=== PATIENT | male | born 1975 | race Caucasian/White ===

== ENCOUNTER 2021-08-30 12:31 | Observation (INO) | payer OTHER, SELFPAY ==
[2021-08-30] VITALS (37 sets, daily range): BP systolic 159–246; BP diastolic 103–146; PULSE 66–106; RESP 12–25; TEMP 36.3–36.6; O2SAT 95–98; BMI 29.5
--- NOTE | ~2021-08-30 | CT_ITS ---
EXAMINATION: CT brain wo con DATE: 08/30/2021 13:27 INDICATION: Dizziness. Left arm tingling. TECHNIQUE: Computed tomography (CT) of the head was performed without intravenous contrast. The mA wa s adjusted according to patient size. Iterative reconstruction technique was employed. The dose-lengt h product was 605.33 mGy-cm. COMPARISON: None FINDINGS: There are scattered areas of low attenuation in the cerebral white matter. There is an old lacunar infarct in left lentiform nucleus. There is no intracranial hemorrhage, acute infarction, or abnormal intracranial mass lesion. The ventricles are normal in size. The orbits are normal. There is mild mucosal thickening in the paranasal sinuses. The mastoid air cells are normal. IMPRESSION: 1. Old lacunar infarct in left lentiform nucleus. 2. Moderate nonspecific cerebral white matter disease, which likely represents chronic small vessel i schemic disease. Reviewed, dictated and finalized at location A. IMPRESSION: 1. Old lacunar infarct in left lentiform nucleus. 2. Moderate nonspecific cerebral white matter disease, which likely represents chronic small vessel ischemic disease.
--- NOTE | 2021-08-30 12:34 | ECG_ITS ---
Measurements Intervals [place] Rate: 94 P: 28 CA: 156 QRS: -5 QRSD: 105 T: 129 QT: 373 QTc: 468 Interpretive Statements SINUS RHYTHM LEFT VENTRICULAR HYPERTROPHY AND ST-T CHANGE BORDERLINE R WAVE PROGRESSION, ANTERIOR LEADS BORDERLINE ECG Electronically Signed On 08-30-2021 12:54:21 CDT by Loi Lozada D.O.
[2021-08-30 12:59] LABS: Basophils Absolute Auto 0.1 K/mm3 (0.0-0.1); Basophils Percent Auto 0.7 % (0.2-1.2); Eosinophils Percent Auto 0.3 % (0-4.4); Hematocrit 46.3 % (42.0-52.0); Hemoglobin 15.8 g/dL (14.0-18.0); Immature Granulocyte Absolute 0.02 K/mm3 (0.00-0.031); Immature Granulocyte Percent A 0.3 % (0-0.5); Mean Corpuscular HGB Conc 34.1 g/dl (32-36); Mean Corpuscular Hemoglobin 28.9 pg (26-34); Mean Corpuscular Volume 84.8 fl (80-100); Mean Platelet Volume 11.1 fl (7.4-10.4); Monocytes Absolute Auto 0.4 K/mm3 (0.1-0.6); Monocytes Percent Auto 5.5 % (2.6-8.5); Neutrophils Absolute Auto 5.4 K/mm3 (1.3-6.7); Neutrophils Percent Auto 76.2 % (45.5-73.1); Platelet Count Result 242 k/mm3 (150-375); Red Blood Count 5.46 M/mm3 (4.6-6.20); Red Cell Distribution Width 12.6 % (11.5-14.5); White Blood Count 7.1 K/mm3 (4.5-10.0)
[2021-08-30 13:12] LABS: Alanine Aminotransferase 38 U/L (6-50); Albumin Level 4.7 g/dL (3.5-5.1); Alkaline Phosphatase 74 U/L (38-126); Anion Gap 8 mmol/L (8-16); Aspartate Amino Transferase 28 U/L (17-59); Bilirubin,Total 0.7 mg/dL (0.2-1.3); Blood Urea Nitrogen 25 mg/dL (9-20); Calcium 8.9 mg/dL (8.4-10.2); Carbon Dioxide 28 mmol/L (22-30); Chloride 104 mmol/L (98-107); Estimated CRCL calculation 81 ml/min; Estimated Glomerular Filt Rate > 60; Glucose 134 mg/dL (65-110); Potassium 3.5 mmol/L (3.4-5.0); Sodium 140 mmol/L (137-145)
[2021-08-30] MEDS: LABETALOL HCL INJ 100 MG/20 ML VIAL 20 MG IV PUSH (13:14)
[2021-08-30 13:59] LABS: Prothrombin Time 13.2 Seconds (11.1-14.7)
[2021-08-30 14:00] LABS: Partial Thromboplastin Time 28.4 SECONDS (22.3-36.8)
[2021-08-30 14:01] LABS: Appearance Urine Clear (Clear); Bilirubin Urine Negative (Negative); Blood Urine Negative (Negative); Color Urine Yellow (Yellow); Glucose Urine UA Negative (Negative); Ketones Urine Negative (Negative); Leukocyte Esterase Ur Negative LEU/UL (Negative); Nitrate Urine Negative (Negative); Protein Urine 2+ mg/dL (Negative); Specific Grav Ur >= 1.030 (1.001-1.035); Urobilinogen Urine 0.2 mg/dL (<2.0); pH Urine 6.5 (5.0-9.0)
[2021-08-30 14:20] LABS: Bacteria Urine Trace /hpf; Mucus Urine Rare /lpf; RBC Urine 0-2 /hpf (0-2); WBC Urine 0-3 /hpf
--- NOTE | 2021-08-30 14:24 | ED.DIZZY ---
HPI - Dizziness General Chief Complaint: Dizziness Stated Complaint: Sweating, Numbness In Body Time Seen by Provider: 08/30/21 12:51 Source: patient and RN notes reviewed Mode of arrival: ambulatory Limitations: no limitations History of Present Illness HPI Narrative: This is a 46 yo male who presents for evaluation of dizziness. Patient he was at work when he suddenly developed cold sweats, dizziness and left hand tingling. He states his symptoms have passed. He denies having chest pain, headache, back pain, weakness or abdominal pain. He also denies heart racing or palpitations. He was found to have extremely elevated blood pressure in triage. Patient states he has been told before this blood pressure is high, and he should monitor it. He states he has not seen doctor in years and he does not monitor his blood pressure. He denies focal weakness, blurred vision. Related Data Home Medications Medication Instructions Recorded Confirmed No Home Medications 08/30/21 08/30/21 Allergies Allergy/AdvReac Type Severity Reaction Status Date / Time No Known Allergies Allergy Verified 08/30/21 12:46 Review of Systems Review of Systems: All systems reviewed & are unremarkable except as noted in HPI and below Constitutional: Constitutional: Denies chills, Denies fatigue and Denies fever(s) Eyes: Eyes: Denies change in vision and Denies photophobia ENT: Denies vertigo, Reports dizziness and Denies nasal congestion Cardiovascular: Cardiovascular: Denies chest pain and Denies radiating jaw, neck or arm pain Respiratory: Respiratory: Denies chest congestion, Denies cough and Denies dyspnea Gastrointestinal: Gastrointestinal: Denies abdominal pain, Denies bloating, Denies nausea and Denies vomiting Neurologic: Reports dizziness, Denies headache(s), Denies focal weakness and Reports numbness PMFSH Past Medical History Medical History No pertinent past medical history Surgical History Surgical History No pertinent past surgical history Family History Family History Father Heart disease Social History Social History Smoking status: Light tobacco smoker Tobacco type: cigars Alcohol intake: current Drinks per week: 4 Substance use: current Substance use type: marijuana Other substance usage details: every few weeks Spiritual care concerns: No Exam Narrative: GENERAL: Well-appearing, well-nourished, and in no acute distress. HEAD: Normocephalic, atraumatic EYES: PERRLA and EOMI, conjunctiva clear without discharge EARS: TM's clear bilaterally without erythema or dullness NOSE: Nares clear, no rhinorrhea or epistaxis THROAT:Mucous membranes moist, Oropharynx normal without erythema, exudate, peritonsillar swelling or fluctuance NECK: Supple, without lymphadenopathy or mass RESPIRATORY: No respiratory distress, Airway patent, Respirations non-labored, Clear to auscultation without rales, rhonchi or wheeze HEART: Regular rate and rhythm. No murmur heard. Normal peripheral pulses. ABDOMEN: Soft, nontender, nondistended, normal active bowel sounds. No masses. No rebound or guarding, No organomegaly. EXTREMITIES: No edema, normal strength with full range of motion. SKIN: Warm, dry, normal color without rash NEURO: Alert and oriented x3. CN 2-12 grossly intact. No focal deficits. PSYCH: Normal mood and affect. Course Reevaluation(s) Reevaluation #1: I discussed with patient that he will be admitted for blood pressure control. I discussed CT brain showing lacunar infarct. He has been accepted for admission by Ashley Beckett with hospitalist service. Date: 08/30/21 Time: 14:50 Vital Signs Vital signs: Vital Signs Temperature 97.4 F L 08/30/21 1
[2021-08-30 14:47] LABS: Add Urine Microscopic? YES
[2021-08-30 15:34] LABS: SARS-CoV-2 RNA PCR Negative
--- NOTE | 2021-08-30 15:52 | PM.IMHP ---
H&P: HPI History of Present Illness Date/Time: 08/30/21 15:00 Chief Complaint: Dizziness with sweating and numbness in body Narrative: This 46 year old male patient with no known PMH and no chronic health conditions that are known presents to the ER via EMS after being at work in a cooler, where he began to get diaphoretic, dizzy, felt weak and suddenly had tingling down his left arm. He was transported to the ER where his initial BP was in the 240s systolic/140s Diastolic. He did not present with any CP, dyspnea or Palpitations. He has not seen a PCP for many years, and has not had any medical testing for the same amount of time. He does not routinely monitor his BP and he denied any focal weakness, blurry vision or other neurological deficits upon presentation. Patient was given labetalol 20 mg IV push and blood pressure subsequently decreased to 164/107. Patient had CT of the brain performed demonstrating an old lacunar infarct in the left lentiform nucleus and moderate nonspecific cerebral white matter disease which likely represents chronic small vessel ischemic disease. His blood pressure continues to fluctuate 160s-240s Systolic/107-146 Diastolic. He is being admitted at this time to observation and for blood pressure management. At the time of my exam, his acute symptoms have resolved, however, his BP remains high. He denies any CP, Dyspnea, Palpitations, N/V/D/urinary complaints. Review of Systems Review of Systems: All systems reviewed & are unremarkable except as noted in HPI and below PMFSH Past Medical History Medical History No pertinent past medical history Surgical History Surgical History No pertinent past surgical history Family History Family History Father Heart disease Social History Social History Substance use type: marijuana Meds Home Medications and Allergies Allergies Allergy/AdvReac Type Severity Reaction Status Date / Time No Known Allergies Allergy Verified 08/30/21 12:46 Vital Signs Vital Signs - 24 hr 08/30/21 12:36 08/30/21 12:47 08/30/21 14:15 Temperature 97.4 F L Pulse Rate 106 H 93 74 Respiratory Rate 18 16 19 Blood Pressure 246/146 H 220/142 H 164/107 H Pulse Oximetry 97 97 97 Oxygen Delivery Room Air 08/30/21 13:30 Temperature Pulse Rate 73 Respiratory Rate 16 Blood Pressure 174/113 H Pulse Oximetry Oxygen Delivery Exam Const: General: comfortable and no acute distress HENMT: Ears: TM's normal bilaterally General nose exam: Normal nares present Mouth: Yes moist mucous membranes Eyes: General: appearance normal, both eyes and all related structures Sclera: sclerae normal Pupils: Equal, round and reactive pupils present EOM: EOMs intact bilaterally Neck: Neck: supple and no JVD Thyroid: thyroid normal Carotids: no bruits Lymphatic: lymphadenopathy not noted Chest: Other: Non-tender to palpation. Resp: Effort & Inspection: normal respiratory effort Auscultation: clear to auscultation bilaterally Cardio: Rate: regular rate Rhythm: regular rhythm Heart sounds: no gallops, no murmurs and no rubs Other: S1-S2 present. No S3, S4 displacement of PMI. GI: Inspection: non-distended GI Palp: Yes Soft to palpation, No Tenderness to palpation present (GI) and No Guarding due to palpation present (GI) Auscultation: normal bowel sounds Skin: General skin exam: normal color and no rashes or lesions noted Lesions: no lesions noted Rashes: no rashes noted Wounds: no wounds Neuro: General: gait normal Speech: normal speech Motor exam (neuro): 5/5 motor strength present throughout and Normal motor muscle tone present throughout Extrem: General: normal to inspection, normal exam except as noted, no ed
[2021-08-30] MEDS: ENOXAPARIN 40 MG/0.4 ML SYRINGE SUB-Q (16:42)
[2021-08-30 17:57] LABS: Troponin I 0.025 ng/mL (0.000-0.034)
[2021-08-30 18:40] LABS: Thyroid Stimulating Hormone Reflex 0.518 uIU/mL (0.465-4.68)
[2021-08-30] MEDS: hydrALAZINE HCL 20 MG/ML VIAL 10 MG IV PUSH (19:04)
--- NOTE | 2021-08-30 19:25 | PC.NURSE ---
This patient, Rob Bernal, was admitted to IMU Room 210-01. Patient/family oriented to hospital policies and general routines including ID bracelet, bed and alarms, visiting hours, pain management, procedures, bathroom and other care routines, personal items, smoking policy, room service/diet, and visiting hours. Information on how to activate the Rapid Response Team has been discussed. Patient/Family are encouraged to report perceived risks to care and to ask questions if they do not understand what they are told or what they should do.
[2021-08-31] VITALS (14 sets, daily range): BP systolic 143–190; BP diastolic 92–120; PULSE 63–85; RESP 16–20; TEMP 36.1–36.6; O2SAT 97–100
[2021-08-31 05:04] LABS: Basophils Absolute Auto 0.1 K/mm3 (0.0-0.1); Basophils Percent Auto 1.1 % (0.2-1.2); Eosinophils Absolute Auto 0.1 K/mm3 (0-0.3); Eosinophils Percent Auto 1.5 % (0-4.4); Hematocrit 43.5 % (42.0-52.0); Hemoglobin 15.1 g/dL (14.0-18.0); Immature Granulocyte Absolute 0.02 K/mm3 (0.00-0.031); Immature Granulocyte Percent A 0.4 % (0-0.5); Lymphocytes Absolute Auto 1.53 K/mm3 (0.9-3.2); Mean Corpuscular HGB Conc 34.7 g/dl (32-36); Mean Corpuscular Hemoglobin 29.5 pg (26-34); Mean Platelet Volume 11.1 fl (7.4-10.4); Monocytes Absolute Auto 0.5 K/mm3 (0.1-0.6); Monocytes Percent Auto 8.4 % (2.6-8.5); Neutrophils Absolute Auto 3.3 K/mm3 (1.3-6.7); Neutrophils Percent Auto 60.6 % (45.5-73.1); Platelet Count Result 227 k/mm3 (150-375); Red Blood Count 5.12 M/mm3 (4.6-6.20); Red Cell Distribution Width 12.5 % (11.5-14.5); White Blood Count 5.5 K/mm3 (4.5-10.0)
[2021-08-31] MEDS: hydrALAZINE HCL 20 MG/ML VIAL 10 MG IV PUSH ×2 (05:13→17:50)
[2021-08-31 06:19] LABS: Alanine Aminotransferase 30 U/L (6-50); Albumin Level 4.2 g/dL (3.5-5.1); Alkaline Phosphatase 69 U/L (38-126); Anion Gap 3 mmol/L (8-16); Aspartate Amino Transferase 21 U/L (17-59); Bilirubin,Total 0.8 mg/dL (0.2-1.3); Blood Urea Nitrogen 23 mg/dL (9-20); Calcium 8.6 mg/dL (8.4-10.2); Carbon Dioxide 29 mmol/L (22-30); Chloride 106 mmol/L (98-107); Cholesterol 240 mg/dL (0-200); Estimated CRCL calculation 81 ml/min; Estimated Glomerular Filt Rate > 60; Glucose 100 mg/dL (65-110); HDL Direct 62 mg/dL; Potassium 3.8 mmol/L (3.4-5.0); Sodium 138 mmol/L (137-145); Triglycerides 133 mg/dL (<150)
[2021-08-31 06:30] LABS: LDL Cholesterol Direct 121 mg/dL
[2021-08-31] MEDS: lisinopriL 5 MG TABLET PO (09:32)
[2021-08-31] MEDS: carvediloL 6.25 MG TABLET PO ×2 (09:49→21:23)
--- NOTE | 2021-08-31 12:14 | PM.IMPN ---
Progress Note: A&P Assessment and Plan (1) Hypertension: Code(s): I10 - Essential (primary) hypertension Status: Acute Assessment and Plan: - Telemetry - Neuro checks Q4 hrs - Heart healthy diet - Monitor labs and VS. - Repeat troponin - PRN Oxygen - ECHO ordered - PRN Hydralazine ordered with parameters - Initiate Losartan 25 mg po daily, up-titrate/add to regime as needed. (2) Health maintenance alteration: Code(s): Z78.9 - Other specified health status Status: Acute Assessment and Plan: - Pt. with poor health maintenance as he has not seen a physician in years. - Basic labs will be checked including CBC, CMP, TSH with reflex if needed, B12, Vitamin D, fasting cholesterol for AM. - He will need set up with a PCP for discharge. Subjective Date/time seen: 08/31/21 12:14 No complaints Exam Const: General: comfortable and no acute distress HENMT: Ears: TM's normal bilaterally General nose exam: Normal nares present Mouth: Yes moist mucous membranes Eyes: General: appearance normal, both eyes and all related structures Sclera: sclerae normal Pupils: Equal, round and reactive pupils present EOM: EOMs intact bilaterally Neck: Neck: supple and no JVD Thyroid: thyroid normal Carotids: no bruits Lymphatic: lymphadenopathy not noted Chest: Other: Non-tender to palpation. Resp: Effort & Inspection: normal respiratory effort Auscultation: clear to auscultation bilaterally Cardio: Rate: regular rate Rhythm: regular rhythm Heart sounds: no gallops, no murmurs and no rubs Other: S1-S2 present. No S3, S4 displacement of PMI. GI: Inspection: non-distended Auscultation: normal bowel sounds Skin: General skin exam: normal color and no rashes or lesions noted Lesions: no lesions noted Rashes: no rashes noted Wounds: no wounds Neuro: General: gait normal Cranial nerves: Yes Equal, round and reactive pupils present Speech: normal speech Motor exam (neuro): 5/5 motor strength present throughout and Normal motor muscle tone present throughout Extrem: General: normal to inspection, normal exam except as noted, no edema and no pedal edema Psych: Mental Status: mental status grossly normal Affect: normal affect Objective Data Vital Signs Vital Signs: Vital Signs - 24 hr 08/30/21 12:36 08/30/21 12:47 08/30/21 14:15 Temperature 97.4 F L Pulse Rate 106 H 93 74 Respiratory Rate 18 16 19 Blood Pressure 246/146 H 220/142 H 164/107 H Pulse Oximetry 97 97 97 Oxygen Delivery Room Air 08/30/21 13:30 08/30/21 19:27 08/30/21 15:23 Temperature Pulse Rate 73 79 68 Respiratory Rate 16 16 18 Blood Pressure 174/113 H Pulse Oximetry 97 98 Oxygen Delivery 08/30/21 15:24 08/30/21 15:30 08/30/21 15:31 Temperature Pulse Rate 74 72 72 Respiratory Rate 15 20 17 Blood Pressure 177/107 H 159/108 H Pulse Oximetry 97 98 96 Oxygen Delivery 08/30/21 15:45 08/30/21 15:46 08/30/21 16:00 Temperature Pulse Rate 67 72 71 Respiratory Rate 19 18 16 Blood Pressure 170/113 H Pulse Oximetry 97 98 97 Oxygen Delivery 08/30/21 16:15 08/30/21 16:32 08/30/21 16:45 Temperature Pulse Rate 69 73 69 Respiratory Rate 18 19 14 Blood Pressure Pulse Oximetry 97 95 96 Oxygen Delivery 08/30/21 16:46 08/30/21 17:00 08/30/21 17:15 Temperature Pulse Rate 78 67 71 Respiratory Rate 18 17 20 Blood Pressure 164/120 H Pulse Oximetry 96 97 96 Oxygen Delivery 08/30/21 17:30 08/30/21 17:45 08/30/21 17:46 Temperature Pulse Rate 71 88 93 Respiratory Rate 20 12 16 Blood Pressure 172/134 H Pulse Oximetry 96 Oxygen Delivery 08/30/21 18:00 08/30/21 18:01 08/30/21 18:15 Temperature Pulse Rate 72 78 79 Respiratory Rate 19 20 15 Blood Pressure 169/121 H Pulse Oximetry 97 96 97 Oxygen Delivery 08/30/21 18:16 08/30/21 18:30 08/30/21 18:31 Temperature Pulse Rate 80 74 73 Respiratory Rate 19 19 24 H Blood Pre
[2021-08-31] MEDS: IBUPROFEN 400 MG TABLET PO (13:20)
[2021-09-01] VITALS (7 sets, daily range): BP systolic 144–168; BP diastolic 86–102; PULSE 63–71; RESP 16–20; TEMP 36.5–36.8; O2SAT 96–100
[2021-09-01] MEDS: hydrALAZINE HCL 20 MG/ML VIAL 10 MG IV PUSH (04:07)
--- NOTE | 2021-09-01 06:19 | PC.NURSE ---
This patient, Rob Bernal, was transferred to [ [facility]] on 09/01/21 at 0617. Personal belongings sent with patient. Report given to [Antonieta ]. Appropriate documentation sent with patient.
--- NOTE | 2021-09-01 06:37 | PC.NURSE ---
This patient, Rob Bernal, was received from [[id number] ] on 09/01/21 at 0625. Patient/family oriented to unit policies and routines
[2021-09-01] MEDS: lisinopriL 5 MG TABLET PO (10:37)
[2021-09-01] MEDS: carvediloL 6.25 MG TABLET PO (10:37)
--- NOTE | 2021-09-01 10:42 | P.DS_ITS ---
DS: Admitting Diagnosis Discharge Date September 01, 2021 Admitting Diagnosis Hypertension DS: Discharge Diagnosis Discharge Diagnosis (1) Hypertension: Code(s): I10 - Essential (primary) hypertension Status: Acute Assessment and Plan: Adjust meds the patient can be discharge. He is otherwise stable. Has likely had longstanding hypertension for some time. Follow-up PCP (2) Health maintenance alteration: Code(s): Z78.9 - Other specified health status Status: Acute Assessment and Plan: Follow up PCP DS: Summary Hospital Course Hospital Course: See discharge plan diagnoses Time Spent with Patient Time attestation: Total time spent providing and/or coordinating discharge services: Exam Const: General: comfortable and no acute distress HENMT: Ears: TM's normal bilaterally General nose exam: Normal nares present Mouth: Yes moist mucous membranes Eyes: General: appearance normal, both eyes and all related structures Sclera: sclerae normal Pupils: Equal, round and reactive pupils present EOM: EOMs intact bilaterally Neck: Neck: supple and no JVD Thyroid: thyroid normal Carotids: no bruits Lymphatic: lymphadenopathy not noted Chest: Other: Non-tender to palpation. Resp: Effort & Inspection: normal respiratory effort Auscultation: clear to auscultation bilaterally Cardio: Rate: regular rate Rhythm: regular rhythm Heart sounds: no gallops, no murmurs and no rubs Other: S1-S2 present. No S3, S4 displacement of PMI. GI: Inspection: non-distended Auscultation: normal bowel sounds Skin: General skin exam: normal color and no rashes or lesions noted Lesions: no lesions noted Rashes: no rashes noted Wounds: no wounds Neuro: General: gait normal Cranial nerves: Yes Equal, round and reactive pupils present Speech: normal speech Motor exam (neuro): 5/5 motor strength present throughout and Normal motor muscle tone present throughout Extrem: General: normal to inspection, normal exam except as noted, no edema and no pedal edema Psych: Mental Status: mental status grossly normal Affect: normal affect Discharge Plan Discharge Attending physician on discharge: Maldonado Liz Consulting providers: Alek Abdullahi Discharging Clinician: Maldonado Liz Patient Disposition: Home, Self-Care Activity: no preference Diet: as tolerated Patient Instructions: Antibiotic Form, Lisinopril (By mouth), Carvedilol (By mouth), How to Stop Smoking (GEN), Heart Healthy Diet (DC), Seasoning Without Salt (DC), Ischemic Stroke (DC), Low-Sodium Diet (DC), Hypertensive Crisis (DC) Stand Alone Forms: General Discharge Information Follow-up/Referrals: PHYSICIAN,AGRICULTURAL SERVICE WORKER [Primary Care Provider] - Discharge Medications: New carvedilol [Coreg] 6.25 mg Tablet 6.25 mg PO Q12HR 30 Days Qty: 60 0RF lisinopril 5 mg Tablet 5 mg PO QAM 30 Days Qty: 30 0RF Date of admission: 08/30/21 14:35 Primary Care Provider: PHYSICIAN,AGRICULTURAL SERVICE WORKER Admitting Provider: Luke Pascual Attending physician on admission: Luke Pascual Condition: Stable Quality VTE Prophylaxis VTE prophylaxis: pharmacologic ordered
== END 2021-09-01 14:00 | disposition home or self-care (01) ==
LOC: ANHED 13:04 → ANHIMU 19:57 → ANH3MED 09-01 10:42 → ANHIMU 09-03 14:32
PROVIDERS: Emergency Medicine; Nurse Practitioner Adult Health; Admitting Provider Internal Medicine; Emergency Provider General Practice; Visit Provider Chiropractor
DX: I11.9 Hypertensive heart disease without heart failure (principal); Z78.9 Other specified health status; R42 Dizziness and giddiness; R61 Generalized hyperhidrosis; R20.0 Anesthesia of skin; Z86.73 Personal history of transient ischemic attack (TIA), and cerebral infarction without residual deficits; R90.82 White matter disease, unspecified; F17.290 Nicotine dependence, other tobacco product, uncomplicated; F12.90 Cannabis use, unspecified, uncomplicated; Z82.49 Family history of ischemic heart disease and other diseases of the circulatory system; Z20.822 Contact with and (suspected) exposure to COVID-19
CPT/HCPCS: 36415; 70450; 80053; 80061; 81001; 82607; 84443; 84484; 85025; 85610; 85730; 93005; 96372; 96374; 96375; 96376; 99285; A9270; C9803; G0378; J0360; J1650; U0003; U0005

== ENCOUNTER 2021-09-04 14:24 | Emergency (ER) | payer OTHER, SELFPAY ==
[2021-09-04] VITALS (19 sets, daily range): BP systolic 167–228; BP diastolic 112–133; PULSE 78; RESP 18; TEMP 36.1; O2SAT 95–99
--- NOTE | 2021-09-04 14:43 | ED.RECABL ---
HPI - Recheck/Abnormal Lab/Rx General Chief Complaint: Recheck/Abnormal Lab/Rx Stated Complaint: arley blood pressure Time Seen by Provider: 09/04/21 14:36 History of Present Illness HPI narrative: 46-year-old male presents the emergency room for evaluation of high blood pressure. Patient states he was seen here last week for elevated blood pressure, and was admitted for hypertensive crisis. States that he was discharged from the hospital. 5 mg of lisinopril and 6.25 mg of carvedilol. States his blood pressures been running high since discharge, and has noticed that they were over 200/100 since this morning. Denies headache, denies numbness tingling, denies shortness of breath, denies chest pain, denies any neurofocal deficits or weakness. Related Data Allergies Allergy/AdvReac Type Severity Reaction Status Date / Time No Known Allergies Allergy Verified 08/30/21 12:46 Review of Systems Review of Systems: CONSTITUTIONAL: Denies fever, chills, or sweats. EYES: Denies visual changes, redness, or discharge. ENT: Denies rhinorrhea, congestion, sore throat, or otalgia. CARDIOVASCULAR: Denies chest pain, palpitations, or edema. RESPIRATORY: Denies cough or dyspnea. GASTROINTESTINAL: Denies abdominal pain, nausea, vomiting, or diarrhea. GENITOURINARY: Denies dysuria or hematuria. SKIN: Denies rash or itching. MUSCULOSKELETAL: Denies back pain, joint pain, or myalgia. NEUROLOGIC: Denies headache, numbness, dizziness, or weakness. PSYCHIATRIC: Denies anxiety or depression. [facility] Past Medical History Medical History No pertinent past medical history Surgical History Surgical History No pertinent past surgical history Family History Family History Father Heart disease Social History Social History Smoking status: Light tobacco smoker Tobacco type: cigars Alcohol intake: current Drinks per week: 4 Substance use: current Substance use type: marijuana Other substance usage details: every few weeks Spiritual care concerns: No Exam Narrative: GENERAL: Well-appearing, well-nourished, no physical limitations, and in no acute distress. HEAD: Normocephalic, atraumatic. EYES: Conjunctivae normal, PERRLA and EOMI. NECK: Supple. No meningeal signs. No adenopathy or masses. CHEST: Clear to auscultation. No respiratory distress. No wheezes rales or rhonchi. No tenderness. HEART: Regular rate and rhythm. No murmur heard. Normal peripheral pulses. EXTREMITIES: Normal range of motion. No edema. No clubbing or cyanosis SKIN: Warm, dry, no rash. No noted wounds NEURO: No focal deficits. Alert and oriented x3. MAEW. CN's II-XI intact bilaterally, normal gait PSYCH: Cooperative. Normal mood and affect. Course Vital Signs Vital signs: Vital Signs Temperature 36.1 C L 09/04/21 14:31 Pulse Rate 78 09/04/21 14:31 Respiratory Rate 18 09/04/21 14:31 Blood Pressure 228/133 H 09/04/21 14:31 Pulse Oximetry 99 09/04/21 14:31 Oxygen Delivery Room Air 09/04/21 14:31 Temperature 36.1 C L 09/04/21 14:31 Pulse Rate 78 09/04/21 14:31 Respiratory Rate 18 09/04/21 14:31 Blood Pressure 170/113 H 09/04/21 16:31 Pulse Oximetry 95 09/04/21 17:00 Oxygen Delivery Room Air 09/04/21 14:31 MDM - Recheck/Abnormal Lab/Rx Lab Data Result diagrams: 09/04/21 15:03 09/04/21 15:03 Labs: Lab Results 09/04/21 09/04/21 Range/Units 15:03 15:03 WBC 5.7 (4.5-10.0) K/mm3 RBC 5.40 (4.6-6.20) M/mm3 Hgb 15.9 (14.0-18.0) g/dL Hct 46.3 (42.0-52.0) % MCV 85.7 (80-100) fl MCH 29.4 (26-34) pg MCHC 34.3 (32-36) g/dl RDW 12.6 (11.5-14.5) % Plt Count 255 (150-375) k/mm3 MPV 11.0 H (7.4-10.4) fl Immature Gran % (Au
--- NOTE | 2021-09-04 14:52 | ECG_ITS ---
Measurements Intervals [place] Rate: 72 P: 17 [place]: 176 QRS: -11 QRSD: 106 T: 136 QT: 404 QTc: 442 Interpretive Statements SINUS RHYTHM DELAYED PRECORDIAL R/S TRANSITION LEFT VENTRICULAR HYPERTROPHY AND ST-T CHANGE BASELINE ARTIFACT- V6 BORDERLINE ECG Electronically Signed On 09-04-2021 15:36:18 CDT by Loi Lozada D.O.
[2021-09-04 15:08] LABS: Basophils Percent Auto 0.7 % (0.2-1.2); Eosinophils Percent Auto 0.7 % (0-4.4); Hematocrit 46.3 % (42.0-52.0); Hemoglobin 15.9 g/dL (14.0-18.0); Immature Granulocyte Absolute 0.01 K/mm3 (0.00-0.031); Immature Granulocyte Percent A 0.2 % (0-0.5); Lymphocytes Percent Auto 17.5 % (18.3-44.2); Mean Corpuscular HGB Conc 34.3 g/dl (32-36); Mean Corpuscular Hemoglobin 29.4 pg (26-34); Mean Corpuscular Volume 85.7 fl (80-100); Monocytes Absolute Auto 0.4 K/mm3 (0.1-0.6); Monocytes Percent Auto 6.8 % (2.6-8.5); Neutrophils Absolute Auto 4.2 K/mm3 (1.3-6.7); Neutrophils Percent Auto 74.1 % (45.5-73.1); Platelet Count Result 255 k/mm3 (150-375); Red Cell Distribution Width 12.6 % (11.5-14.5); White Blood Count 5.7 K/mm3 (4.5-10.0)
[2021-09-04 15:18] LABS: Alanine Aminotransferase 65 U/L (6-50); Albumin Level 4.9 g/dL (3.5-5.1); Alkaline Phosphatase 73 U/L (38-126); Anion Gap 10 mmol/L (8-16); Aspartate Amino Transferase 36 U/L (17-59); Bilirubin,Total 0.7 mg/dL (0.2-1.3); Blood Urea Nitrogen 27 mg/dL (9-20); Calcium 9.2 mg/dL (8.4-10.2); Carbon Dioxide 24 mmol/L (22-30); Chloride 107 mmol/L (98-107); Estimated CRCL calculation 81 ml/min; Estimated Glomerular Filt Rate > 60; Glucose 101 mg/dL (65-110); Potassium 4.3 mmol/L (3.4-5.0); Sodium 141 mmol/L (137-145)
[2021-09-04] MEDS: lisinopriL 10 MG TABLET PO (15:23)
[2021-09-04 15:29] LABS: Troponin I 0.013 ng/mL (0.000-0.034)
== END 2021-09-04 18:00 | disposition home or self-care (01) ==
PROVIDERS: Emergency Provider Nurse Practitioner Family
DX: I10 Essential (primary) hypertension (principal)
CPT/HCPCS: 36415; 80053; 84484; 85025; 93005; 99284; A9270

== ENCOUNTER 2021-09-28 13:08 | Outpatient (CLI) | payer OTHER, SELFPAY ==
--- NOTE | 2021-09-28 | ECHO_ITS ---
Patient Info Name: Rob Bernal Age: 46 years : 1975 Gender: Male Ht: 75 in Wt: 235 lbs BSA: 2.39 m2 HR: 59 bpm BP: 134 / 74 mmHg Technical Quality: Good Exam Date: 09/28/2021 2:06 PM Exam Location: [facility] Patient Status: Outpatient Admit Date: 09/28/2021 Staff Ordering Physician: Justino, Morgan Dick MD [employer] Supervisor: Ena Aldrich RDCS Attending Provider: Shania, Morgan Dick MD Referring Physician: Justino CHAN; Exam Type: CA echo doppler color flow Study Info Indications I51.7 - Cardiomegaly Complete two-dimensional, color flow and Doppler transthoracic echocardiogram is performed. Summary 1. Complete two-dimensional, color flow and Doppler transthoracic echocardiogram is performed. 2. Left ventricular chamber dimension is normal. 3. Left ventricular systolic function is normal, estimated at 60-65%. 4. There is mildly increased left ventricular wall thickness. 5. The left ventricular diastolic function is normal. 6. E/e' 9 is minimally elevated. 7. No pulmonary hypertension, estimated pulmonary arterial systolic pressure is 30 mmHg. Left Ventricle E/e' 9 is minimally elevated. Left ventricular chamber dimension is normal. Left ventricular systolic function is normal, estimated at 60-65%. There is mildly increased left ventricular wall thickness. The left ventricular diastolic function is normal. Right Ventricle Right ventricular chamber dimension is normal. Right ventricular systolic function is normal. Left Atria Left atrial chamber dimension is normal. Right Atria Right atrial chamber dimension is normal. Aortic Valve The aortic valve is trileaflet. There is no aortic valve stenosis. There is no aortic valve regurgitation. Pulmonic Valve There is no pulmonic regurgitation. Mitral Valve There is no mitral valve stenosis. There is no mitral valve regurgitation. Tricuspid Valve There is no tricuspid valve regurgitation. No pulmonary hypertension, estimated pulmonary arterial systolic pressure is 30 mmHg. Pericardium/Pleural There is no pericardial effusion. Inferior Vena Cava Normal inferior vena cava with >50% collapse upon inspiration consistent with normal right atrial pressure, 5 mmHg. Aorta The aortic root size at the sinus of Valsalva is normal. Left Ventricular Outflow Tract Name Value Normal LVOT 2D LVOT Diameter 2.1 cm LVOT Doppler LVOT Peak Gradient 4 mmHg LVOT Mean Gradient 3 mmHg LVOT VTI 22 cm LVOT VTI/AV VTI Ratio 0.8 LVOT Stroke Volume 76 ml LVOT CO 16.9 l/min LVOT CI 7.1 l/min/m2 Pulmonic Valve Name Value Normal PV Doppler PV Peak Gradient
== END 2021-09-28 13:09 | disposition home or self-care (01) ==
PROVIDERS: PCP Internal Medicine; Visit Provider Internal Medicine
DX: I51.7 Cardiomegaly (principal)
CPT/HCPCS: 93306

== ENCOUNTER 2022-12-09 07:58 | Emergency (ER) | payer OTHER, SELFPAY ==
[2022-12-09] VITALS (7 sets, daily range): BP systolic 94–119; BP diastolic 65–89; PULSE 54–77; RESP 14–34; TEMP 36.7–36.8; O2SAT 97–100
--- NOTE | ~2022-12-09 | XR_ITS ---
EXAMINATION: XR chest 1V portable 12/09/2022 08:55 INDICATION: Left arm numbness PROCEDURE: AP portable chest COMPARISON: No prior studies for comparison. FINDINGS: The lungs are clear. The cardiomediastinal silhouette is within normal limits. There are no pleural effusions. There is no pneumothorax suspected. IMPRESSION: 1: NO ACUTE CARDIOPULMONARY DISEASE. Reviewed, dictated and finalized at location B.
--- NOTE | 2022-12-09 08:08 | ECG_ITS ---
Measurements Intervals [place] Rate: 64 P: 23 DC: 183 QRS: 8 QRSD: 106 T: 43 QT: 386 QTc: 399 Interpretive Statements SINUS RHYTHM NORMAL ELECTROCARDIOGRAM COMPARED TO ECG 09/04/2021 15:26:54 VOLTAGE EVIDENCE OF LVH HAS RESOLVED Electronically Signed On 12-09-2022 14:50:50 CDT by Maldonado Billy M.D.
--- NOTE | 2022-12-09 08:10 | ED.UPPEXIN ---
HPI - Extremity Injury (Upper) General Chief Complaint: Extremity Injury, Upper Stated Complaint: left shoulder, neck and arm pain since friday Time Seen by Provider: 12/09/22 08:05 History of Present Illness HPI narrative: Pt presents with left shoulder and neck pain off and on for the last few days. Pt denies injury. Pt denies injury. Pt says has left neck and shoulder pain and some numbness in his left finger tips. Pt says the symptoms have been intermittent and chichi precipitating or relieving factors. Pt says the left shoulder and neck pain can last from a fe minutes to a few hours and has had several episodes over the last two days. Pt denies pain now. Pt has HTN, elevated cholesterol and FH of father with [facility] in his 40's. Pt had normal echo last year. Related Data Allergies Allergy/AdvReac Type Severity Reaction Status Date / Time No Known Allergies Allergy Verified 08/30/21 12:46 Review of Systems Review of Systems: All systems reviewed & are unremarkable except as noted in HPI and below PMFSH Past Medical History Medical History No pertinent past medical history Surgical History Surgical History No pertinent past surgical history Family History Family History Father Heart disease Social History Social History Smoking status: Light tobacco smoker Tobacco type: cigars Alcohol intake: current Drinks per week: 4 Substance use: current Substance use type: marijuana Other substance usage details: every few weeks Spiritual care concerns: No Exam Const: General: healthy appearing and no acute distress Nutritional Appearance: well nourished Orientation/consciousness: patient oriented x3 Limitations: no limitations Neck: Neck: normal visual inspection and no meningeal signs Chest: Chest palpation & inspection: normal inspection of the chest Resp: Effort & Inspection: normal respiratory effort Auscultation: clear to auscultation bilaterally Cardio: Rate: regular rate Rhythm: regular rhythm GI: GI Palp: Yes Soft to palpation and No Tenderness to palpation present (GI) Auscultation: normal bowel sounds Skin: General skin exam: normal color Wounds: no wounds Neuro: General: patient oriented x3, moves all extremities, no focal motor deficits and CN's II-XI intact bilaterally Speech: normal speech Extrem: General: normal to inspection and no clubbing, cyanosis or edema Psych: Mental Status: mental status grossly normal Affect: normal affect Attitude: cooperative Course Vital Signs Vital signs: Vital Signs Temperature 98.0 F 12/09/22 08:01 Pulse Rate 68 12/09/22 08:01 Respiratory Rate 18 12/09/22 08:01 Blood Pressure 103/69 12/09/22 08:01 Pulse Oximetry 100 12/09/22 08:01 Oxygen Delivery Room Air 12/09/22 08:01 Temperature 98.2 F 12/09/22 11:35 Pulse Rate 66 12/09/22 11:35 Respiratory Rate 18 12/09/22 11:35 Blood Pressure 106/66 12/09/22 11:35 Pulse Oximetry 99 12/09/22 11:35 Oxygen Delivery Room Air 12/09/22 08:01 MDM - Extremity Injury (Upper) MDM Narrative Medical decision making narrative: Pt presents with intermittent left neck and shoulder pain and tingling in his left fingers for a few days. Seems more likely musculoskeletal like a disc or pinched nerve but has cardiac risk factors so will order EKG, cxr and labs including 2 troponins. labs and both trop neg not likely cardiac ok to discharge on nsaids and flexeril. Lab Data 12/09/22 08:13 12/09/22 08:13 Labs: Lab Results 12/09/22 12/09/22 12/09/22 Range/Units 08:13 08:13 10:48 WBC 6.7 (4.5-10.0) K/mm3 RBC 4.60 (4.6-6.20) M/mm3 Hgb 14.0 (14.0-18.0) g/dL Hct 42.3 (42.0-52.0) % MCV 92
[2022-12-09] MEDS: ASPIRIN 81 MG CHEWABLE TABLET 324 MG PO (08:23)
[2022-12-09 08:26] LABS: Basophils Absolute Auto 0.1 K/mm3 (0.0-0.1); Eosinophils Absolute Auto 0.1 K/mm3 (0-0.3); Eosinophils Percent Auto 1.9 % (0-4.4); Hematocrit 42.3 % (42.0-52.0); Immature Granulocyte Absolute 0.03 K/mm3 (0.00-0.031); Immature Granulocyte Percent A 0.4 % (0-0.5); Lymphocytes Absolute Auto 1.55 K/mm3 (0.9-3.2); Mean Corpuscular HGB Conc 33.1 g/dl (32-36); Mean Corpuscular Hemoglobin 30.4 pg (26-34); Monocytes Absolute Auto 0.5 K/mm3 (0.1-0.6); Monocytes Percent Auto 6.7 % (2.6-8.5); Neutrophils Absolute Auto 4.5 K/mm3 (1.3-6.7); Platelet Count Result 242 k/mm3 (150-375); Red Cell Distribution Width 12.4 % (11.5-14.5); White Blood Count 6.7 K/mm3 (4.5-10.0)
[2022-12-09 08:34] LABS: Alanine Aminotransferase 62 U/L (6-50); Alkaline Phosphatase 60 U/L (38-126); Anion Gap 7 mmol/L (8-16); Aspartate Amino Transferase 40 U/L (17-59); Bilirubin,Total 0.6 mg/dL (0.2-1.3); Blood Urea Nitrogen 31 mg/dL (9-20); Calcium 9.5 mg/dL (8.4-10.2); Carbon Dioxide 30 mmol/L (22-30); Chloride 101 mmol/L (98-107); Estimated Glomerular Filt Rate 50; Glucose 109 mg/dL (65-110); Potassium 4.7 mmol/L (3.4-5.0); Sodium 138 mmol/L (137-145)
[2022-12-09 08:35] LABS: INR 0.9; Prothrombin Time 12.7 Seconds (11.1-14.7)
[2022-12-09 08:36] LABS: Partial Thromboplastin Time 23.4 SECONDS (22.3-36.8)
[2022-12-09 08:46] LABS: Troponin I < 0.012 ng/mL (0.000-0.034)
[2022-12-09 11:18] LABS: Troponin I < 0.012 ng/mL (0.000-0.034)
== END 2022-12-09 11:39 | disposition home or self-care (01) ==
PROVIDERS: Emergency Provider Emergency Medicine; PCP Internal Medicine
DX: M25.512 Pain in left shoulder (principal); I10 Essential (primary) hypertension; E78.00 Pure hypercholesterolemia, unspecified; F17.290 Nicotine dependence, other tobacco product, uncomplicated
CPT/HCPCS: 36415; 71045; 80053; 84484; 85025; 85610; 85730; 93005; 99284; A9270

== ENCOUNTER 2023-06-08 11:49 | Emergency (ER) | payer OTHER, SELFPAY ==
--- NOTE | ~2023-06-08 | XR_ITS ---
EXAMINATION: XR chest 1V portable 06/08/2023 13:01 INDICATION: Dizziness. Hypertension. PROCEDURE: AP portable chest COMPARISON: 12/09/2022 FINDINGS: The lungs are clear. The cardiomediastinal silhouette is within normal limits. There are no pleural effusions. There is no pneumothorax suspected. IMPRESSION: 1: NO ACUTE CARDIOPULMONARY DISEASE. Reviewed, dictated and finalized at location A.
--- NOTE | ~2023-06-08 | CT_ITS ---
EXAMINATION: CT brain wo con DATE: 06/08/2023 14:30 INDICATION: Dizziness. TECHNIQUE: Computed tomography (CT) of the head was performed without intravenous contrast. The mA wa s adjusted according to patient size. Iterative reconstruction technique was employed. The dose-lengt h product was 605.33 mGy-cm. COMPARISON: None FINDINGS: There are scattered areas of low attenuation in the cerebral white matter. There is no int racranial hemorrhage, acute infarction, or abnormal intracranial mass lesion. The ventricles are norm al in size. There is an old blowout fracture of floor of left orbit. The paranasal sinuses are clear. The mastoid air cells are normal. IMPRESSION: 1. Moderate nonspecific cerebral white matter disease, which likely represents chronic small vessel i schemic disease. Reviewed, dictated and finalized at location E. IMPRESSION: 1. Moderate nonspecific cerebral white matter disease, which likely represents chronic small vessel ischemic disease.
--- NOTE | 2023-06-08 11:53 | ECG_ITS ---
SEE SCANNED COPY FOR CONFIRMED REPORT MTDD
[2023-06-08 12:01] VITALS: BP 131/94; PULSE 58; RESP 18; TEMP 36.7
[2023-06-08 13:11] VITALS: BP 146/87; PULSE 73; RESP 18; O2SAT 98
[2023-06-08] MEDS: ASPIRIN 81 MG CHEWABLE TABLET 324 MG PO (14:04)
[2023-06-08] MEDS: MECLIZINE HCL 25 MG TABLET PO (14:05)
[2023-06-08] MEDS: SODIUM CHLORIDE 0.9% IV 1,000 ML 999 ML IV CONT (14:06)
[2023-06-08 14:16] LABS: Basophils Absolute Auto 0.1 K/mm3 (0.0-0.1); Basophils Percent Auto 0.8 % (0.2-1.2); Eosinophils Absolute Auto 0.1 K/mm3 (0-0.3); Eosinophils Percent Auto 0.9 % (0-4.4); Hematocrit 45.6 % (42.0-52.0); Hemoglobin 15.2 g/dL (14.0-18.0); Immature Granulocyte Absolute 0.03 K/mm3 (0.00-0.031); Immature Granulocyte Percent A 0.4 % (0-0.5); Lymphocytes Absolute Auto 1.44 K/mm3 (0.9-3.2); Lymphocytes Percent Auto 19.1 % (18.3-44.2); Mean Corpuscular HGB Conc 33.3 g/dl (32-36); Mean Corpuscular Hemoglobin 29.1 pg (26-34); Mean Corpuscular Volume 87.4 fl (80-100); Mean Platelet Volume 11.6 fl (7.4-10.4); Monocytes Absolute Auto 0.5 K/mm3 (0.1-0.6); Monocytes Percent Auto 6.6 % (2.6-8.5); Neutrophils Absolute Auto 5.4 K/mm3 (1.3-6.7); Neutrophils Percent Auto 72.2 % (45.5-73.1); Platelet Count Result 231 k/mm3 (150-375); Red Blood Count 5.22 M/mm3 (4.6-6.20); Red Cell Distribution Width 12.5 % (11.5-14.5); White Blood Count 7.5 K/mm3 (4.5-10.0)
[2023-06-08 14:19] LABS: Alanine Aminotransferase 51 U/L (6-50); Alkaline Phosphatase 67 U/L (38-126); Anion Gap 8 mmol/L (4-12); Aspartate Amino Transferase 29 U/L (17-59); Bilirubin,Total 0.7 mg/dL (0.2-1.3); Blood Urea Nitrogen 23 mg/dL (9-20); Carbon Dioxide 29 mmol/L (22-30); Chloride 105 mmol/L (98-107); Estimated CRCL calculation 69 ml/min; Estimated Glomerular Filt Rate 54; Glucose 111 mg/dL (65-110); Potassium 4.4 mmol/L (3.4-5.0); Sodium 142 mmol/L (137-145)
[2023-06-08 14:31] LABS: Troponin I < 0.012 ng/mL (0.000-0.034)
[2023-06-08 14:41] LABS: Influenza A QL RT-PCR Negative (Negative); Influenza B QL RT-PCR Negative (Negative); RSV RNA, RT-PCR Negative (Negative); SARS-CoV-2 RNA PCR Negative (Negative)
--- NOTE | 2023-06-08 15:05 | ED.GENADULT ---
HPI - General Adult General Chief complaint: Recheck/Abnormal Lab/Rx Stated complaint: HTN, dizzy, shoulder pain Time Seen by Provider: 06/08/23 12:58 History of Present Illness HPI narrative: Rob Bernal is a 48 y/o male who presents with reports having some intermittent left shoulder pain that started today at around 1000, he states it comes and goes nothing makes it better or worse, he feels some achy pain down his left arm with it and he also thinks it might move in to his left sided of his chest . He also states he was feeling light headed today as well, but also feels that his allergies have been acting up recently Related Data Allergies Allergy/AdvReac Type Severity Reaction Status Date / Time No Known Allergies Allergy Verified 08/30/21 12:46 Review of Systems Review of Systems: All systems reviewed & are unremarkable except as noted in HPI and below PMFSH Past Medical History Medical History No pertinent past medical history Surgical History Surgical History No pertinent past surgical history Family History Family History Father Heart disease Social History Social History Smoking status: Light tobacco smoker Tobacco type: cigars Alcohol intake: current Drinks per week: 4 Substance use: current Substance use type: marijuana Other substance usage details: every few weeks Spiritual care concerns: No Exam Narrative: GENERAL: Well-appearing, well-nourished, and in no acute distress. HEAD: Normocephalic, atraumatic. EYES: PERRLA and EOMI. ENT: Nares clear, no rhinorrhea or epistaxis. Mucous membranes moist. Oropharynx without tonsillar hypertrophy exudate or other lesions. Bilateral TMs pearly chavez nonbulging NECK: Supple. No adenopathy or masses. No carotid bruits or JVD CHEST: Clear to auscultation. No respiratory distress. No wheezes rales or rhonchi HEART: Regular rate and rhythm. No murmur heard. Normal peripheral pulses. ABDOMEN: Soft, nontender, nondistended, normal active bowel sounds. EXTREMITIES: Normal range of motion. No edema. SKIN: Warm, dry, no rash. NEURO: No focal deficits. Alert and oriented x3. PSYCH: Normal mood and affect. Course Vital Signs Vital signs: Vital Signs Temperature 36.7 C 06/08/23 12:01 Pulse Rate 58 L 06/08/23 12:01 Respiratory Rate 18 06/08/23 12:01 Blood Pressure 131/94 H 06/08/23 12:01 Temperature 36.7 C 06/08/23 12:01 Pulse Rate 54 L 06/08/23 16:29 Respiratory Rate 18 06/08/23 16:29 Blood Pressure 120/83 06/08/23 16:29 Pulse Oximetry 100 06/08/23 16:29 Medical Decision Making MDM Narrative Medical decision making narrative: 48 y/o with intermittent left shoulder pain down left arm off and on and might go to his chest but not sure No current chest pain /SOB at this time NO recent fever /chills Concern for : Cardiac ischemia/ URI / Dehydration CBC - within normal limits CMP- Creatinine 1.40 improved from 1.50, GFR 54 improved from 50 , ALT 51 improved 62, Trop 1- Negative Trop 2 - Negative Influenza/ Covid- Negative Head CT - Moderate nonspecific cerebral white matter disease, which likely represents chronic small vessel ischemic disease. CHest xr - NO ACUTE CARDIOPULMONARY DISEASE Discussed with pt his results and re-evaluated he states he feels better, does not have any chest pain /SOB Encouraged pt to follow up with his PCP in the next 3-5 days to review what we did today and see if any additional out pt tests should be done Strict return precautions provided Medical Records Medical records reviewed: Yes I reviewed the external patient's medical records. Vital Signs Vital Signs: Vital Signs Temperature 36.7 C 06/08/23 12:01 Pulse Rate 58 L 06/08/23 12:01 Resp
[2023-06-08 16:29] VITALS: BP 120/83; PULSE 54; RESP 18; O2SAT 100
[2023-06-08 17:19] LABS: Troponin I < 0.012 ng/mL (0.000-0.034)
[2023-06-08 18:07] VITALS: BP 133/95; PULSE 51; RESP 16; O2SAT 100
== END 2023-06-08 18:08 | disposition home or self-care (01) ==
PROVIDERS: Emergency Provider Nurse Practitioner Family; PCP Internal Medicine
DX: R07.89 Other chest pain (principal); Z20.822 Contact with and (suspected) exposure to COVID-19; F17.290 Nicotine dependence, other tobacco product, uncomplicated; R90.82 White matter disease, unspecified
CPT/HCPCS: 36415; 70450; 71045; 80053; 84484; 85025; 87637; 93005; 96360; 96361; 99284; A9270; J7030

== ENCOUNTER 2024-12-27 00:58 | Day surgery (SDC) | payer OTHER, SELFPAY ==
--- OUTSIDE RECORDS SUMMARY | 2024-12-27 01:00 | XMS_ITS | Clinical Summary ---
Author Organization [facility] Address [address] [place] [address] Care Team Providers Care Director Of Music Therapy Name Role Phone Unknown, Provider Primary Care Provider Unavaila ble Source Comments [facility],non-owned Affiliates and Associated Physician Practices is amultiple site organization consisting of ambulatory clinics and hospital sitesin [place], [place], [place] and [place]. This disclosure is being madepursuant to the Care Everywhere program and may not contain all information available regarding this patient. Last updated 17.[facility] Allergies No known active allergies Medications * Be aware that medications may not be up to date on this document. Alwaysverify current medications with the patient. No known medications Active Problems No known active problems Social History Tobacco Use Types Packs/Day Years Used Date Smoking Tobacco: Never Sex and Gender Information Value Date Recorded Sex Assigned at Not on file Legal Sex Male 12:42 PM CDT Gender Identity Not on file Sexual Orientation Not on file Last Filed Vital Signs Vital Sign Reading Time Taken Comments Blood Pressure 146/78 04/03/2016 9:26 AM [employer] Pulse 86 04/03/2016 9:26 AM [employer] Temperature 36.8 C (98.2 F) 04/03/2016 9:26 AM [employer] Respiratory Rate 16 04/03/2016 9:26 AM [employer] Oxygen Saturation 97% 04/03/2016 9:26 AM [employer] Inhaled Oxygen Concentration - - Weight 97.5 kg (215 lb) 04/03/2016 9:26 AM [employer] Height 190.5 cm (6' 3) 04/03/2016 9:26 AM [employer] Body Mass Index 26.87 04/03/2016 9:26 AM [employer] Plan of Treatment Health Maintenance Due Date Last Done Comments COLOGUARD (AGES 45-75) - COL ON CA SCREENING 1974 COLON MONITORING 1974 COLONOSCOPY - COLON CA SCREENING 1974 CT COLONOGRAPHY - COLON CA SCREENING 1974 Colorectal Cancer Screening 1974 FIT - COLON CA SCREENING 1974 FLEX SIG - COLON CA SCREENING 1974 LIPID TESTING 1974 HIV SCREENING 1989 HEPATITIS C SCREENING 02/16/1992 DTAP/TDAP/TD VACCINES (1 - Tdap) 1993 HEPATITIS B VACCINE (1 of 3 - 19+ 3-dose series) 1993 DEPRESSION SCREENING 02/18/2024 PNEUMOCOCCAL VACCINE 50+ (1 of 1 - PCV) 02/21/2024 ZOSTER VACCINE (1 of 2) 02/21/2024 COVID-19 VACCINE (1 - 2023-2 5 season) 2024 INFLUENZA VACCINE (#1) 2024 HIB VACCINE Aged Out No longer eligi ble based on patient's age to complete this topic HPV VACCINE Aged Out No longer eligi ble based on patient's age to complete this topic MENINGOCOCCAL (Group B) VACC INE SHARED DECISION-MAKING Aged Out No longer eligibl e based on patient's age to complete this topic MENINGOCOCCAL GROUPS A/C/Y/W VACCINE Aged Out No longer eligible b ased on patient's age to [place] [id number] Care Teams Director Of Music Therapy Relationship Specialty Start Date End Date Unknown, Provider PCP - General 04/03/16
--- OUTSIDE RECORDS SUMMARY | 2024-12-27 01:01 | XMS_ITS | Data Portability ---
Author Organization [facility], Main Office Address [address] [place] [address] Assessment No assessment recorded. Plan of Treatment Reminders Order Date Submit Date Provider Last Modified By Organization Details Last Modified Time Details Appointments Any 15 2024 03:30P M Morgan Badillo MD Not available Not available Not available Lab PSA, serum or plasma 2024 025 [email or web address] [facility], [address], [place], [address], 10/04/2024 09:04:33 CMP, serum or plasma 2024 025 [email or web address] [facility], [address], [place], [address], 10/04/2024 09:04:33 lipid panel, serum [address] (Lab), [address] [place], [address], 10/04/2024 09:04:33 CMP, serum or plasma [address] (Lab), [address] [place], [address], 10/01/2024 11:33:16 lipid panel, serum [address] (Lab), [address] [place], [address], 10/01/2024 11:33:16 BMP, serum or plasma 2023 024 [email or web address] [facility] (Lab), [address] [place], [address], 12/16/2023 08:20:47 CMP, serum or plasma [address] [facility] (Lab), [address] [place], [address], 06/05/2023 22:11:12 lipid panel, serum [address] [facility] (Lab), [address] [place], [address], 06/05/2023 22:11:22 Referral None recorde d. Procedures colonos copy screeni ng (PROC) - Please call patient to yenifer patel appoint ment. Thank you. 2024 025 [email or web address] Jose perez MD, [address], [address], [place], [address], 08/30/2024 09:03:43 Surgeries None recorde d. Imaging None recorde d. Medication Orders losarta n 100 mg tablet 2023 024 [facility]/Pharmacy #[id number], [address], [place], [address], 10/09/2023 10:07:55 valacyc lovir 1 gram tablet 2023 024 [facility]/Pharmacy #[id number], [address], [place], [address], 05/25/2024 16:43:00 carvedi lol 6.25 mg tablet 2023 024 [facility]/Pharmacy #[id number], [address], [place], [address], 06/05/2023 09:22:48 losarta n 50 mg tablet 2023 024 [facility]/Pharmacy #[id number], [address], [place], [address], 05/25/2024 16:32:56 rosuvas tatin 20 mg tablet 2023 024 [facility] #[id number], [address], [place], [address], 06/05/2023 09:22:48 Patient TargetsNo targets recorded. Patient InstructionsNo instructions recorded. Reason for Referral None Reported. Results Created Date Observation Date Name Description Value Unit Range Abnormal Flag Note LastModifiedBy Organization Detail LastModifiedTime 06/05/19 24 06/05/2023 COMPR EHENS ROBYN METAB OLIC PANEL sodium 141 mmol/ L 137-14 5 Not Available [facility] (Lab) [address] [place], [address], 06/05/2023 22:11:12 06/05/19 24 06/05/2023 COMPR EHENS ROBYN METAB OLIC PANEL potassium 4.1 mmol/ L 3.5-5. 1 Not Available [facility] (Lab) [address] [place], [address], 06/05/2023 22:11:12 06/05/19 24 06/05/2023 COMPR EHENS ROBYN METAB OLIC PANEL chloride 103 mmol/ L 98-107 Not Available [facility] (Lab) [address] [place], [address], 06/05/2023 22:11:12 06/05/19 24 06/05/2023 COMPR EHENS ROBYN METAB OLIC PANEL carbon dioxide 27 mmol/ L 22-30 Not Available [facility] (Lab) [address] [place], [address], 06/05/2023 22:11:12 06/05/19 24 06/05/2023 COMPR EHENS ROBYN METAB OLIC PANEL anion gap 15.1 mmol/ L 14-22 Not Available [facility] (Lab) [address] [place], [address], 06/05/2023 22:11:12 06/05/19 24 06/05/2023 COMPR EHENS ROBYN METAB OLIC PANEL glucose 138 mg/dL 70-99 high Not Available [facility] (Lab) [address] [place], [address], 06/05/2023 22:11:12 06/05/19 24 06/05/2023 COMPR EHENS ROBYN METAB OLIC PANEL BUN 27 mg/dL 8-19 high Not Available [facility] (Lab) [address] [place], [address], 06/05/2023 22:11:12 06/05/19 24 06/05/2023 COMPR EHENS ROBYN METAB OLIC PANEL creatinine 1.34 mg/dL 0.66-1 .25 high Not Available [facility] (Lab) [address] [place], [address], 06/05/2023 22:11:12 06/05/19 24 06/05/2023 COMPR EHENS ROBYN METAB OLIC PANEL GFR 57 Refer ence Range : [place] ge GFR Healt hy Adult : >60 mL/mi n/1.7 3 m2 Chron ic Kidne y Disea se: 15-60 mL/mi n/1.7 3 m2 Kidne y Failu re: <15/m L/min /1.73 m2 www.n iddk. nih.g ov The MDRD study equat ion has not been valid ated in child fabrice <18 years of age; pregn ant women ; the elder ly >85 years of age; or in some racia l or ethni c subgr oups, such as Hispa nics. Outsi de the valid ated vi eters , estim ated GFR is less accur ate, requi ring clini trevin judgm ent on a case- by-ca se basis . Clini trevin inter preta tion for other races and ages must be made by the clini sonia. The MDRD study equat ion has not been valid ated for the evalu ation of serum creat inine relat ed to nutri arielle l statu s or medic ation usage . For perso ns <18 years of age, a pedia tric GFR amelieu phil is avail able on the [facility] websi te: https ://rasheed w.lucia villanuevay.o antonio/pr ofess ional s/kdo qi/gf r_cal culat or Not Available [facility] (Lab) [address] [place], [address], 06/05/2023 22:11:12 06/05/19 24 06/05/2023 COMPR EHENS ROBYN METAB OLIC PANEL alkaline phosphatase 72 U/L 38-126 Not Available [facility] (Lab) [address] [place], [address], 06/05/2023 22:11:12 06/05/19 24 06/05/2023 COMPR EHENS ROBYN METAB OLIC PANEL alanine aminotransfe rase 55 U/L 0-50 high Not Available [facility] (Lab) [address] [place], [address], 06/05/2023 22:11:12 06/05/19 24 06/05/2023 COMPR EHENS ROBYN METAB OLIC PANEL aspartate aminotransfe rase 38 U/L 15-46 Not Available [facility] (Lab) [address] [place], [address], 06/05/2023 22:11:12 06/05/19 24 06/05/2023 COMPR EHENS ROBYN METAB OLIC PANEL bilirubin, total 0.60 mg/dL 0.20-1 .30 Not Available [facility] (Lab) [address] [place], [address], 06/05/2023 22:11:12 06/05/19 24 06/05/2023 COMPR EHENS ROBYN METAB OLIC PANEL calcium 9.7 mg/dL 8.4-10 .2 Not Available [facility] (Lab) [address] [facility] [place] [facility] [place], [address], 06/05/2023 22:11:12 06/05/19 24 06/05/2023 COMPR EHENS ROBYN METAB OLIC PANEL total protein 7.7 g/dL 6.3-8. 2 Not Available [facility] (Lab) [address] [place], [address], 06/05/2023 22:11:12 06/05/19 24 06/05/2023 COMPR EHENS ROBYN METAB OLIC PANEL albumin 5.0 g/dL 3.4-5. 0 Not Available [facility] (Lab) [address] [place], [address], 06/05/2023 22:11:12 06/05/19 24 06/05/2023 COMPR EHENS ROBYN METAB OLIC PANEL globulin 2.7 g/dL 2.6-4. 2 Not Available [facility] (Lab) [address] [place], [address], 06/05/2023 22:11:12 06/05/19 24 06/05/2023 COMPR EHENS ROBYN METAB OLIC PANEL A/G ratio 1.9 ratio 1.0-2. 0 Not Available [facility] (Lab) [address] [place], [address], 06/05/2023 22:11:12 06/05/19 24 06/05/2023 HEPAT IC/LI MOHAN PANEL alkaline phosphatase 72 U/L 38-126 Not Available [facility] (Lab) [address] [place], [address], 06/05/2023 23:02:24 06/05/19 24 06/05/2023 HEPAT IC/LI MOHAN PANEL alanine aminotransfe rase 55 U/L 0-50 high Not Available [facility] (Lab) [address] [place], [address], 06/05/2023 23:02:24 06/05/19 24 06/05/2023 HEPAT IC/LI MOHAN PANEL aspartate aminotransfe rase 38 U/L 15-46 Not Available [facility] (Lab) [address] [place], [address], 06/05/2023 23:02:24 06/05/19 24 06/05/2023 HEPAT IC/LI MOHAN PANEL bilirubin, total 0.60 mg/dL 0.20-1 .30 Not Available [facility] (Lab) [address] [place], [address], 06/05/2023 23:02:24 06/05/19 24 06/05/2023 HEPAT IC/LI MOHAN PANEL bilirubin, conjugated (direct) 0.00 mg/dL 0.00-0 .30 Not Available [facility] (Lab) [address] [place], [address], 06/05/2023 23:02:24 06/05/19 24 06/05/2023 HEPAT IC/LI MOHAN PANEL biliurubin,u ncong. (indirect) 0.40 mg/dL 0.00-1 .1 Not Available [facility] (Lab) [address] [place], [address], 06/05/2023 23:02:24 06/05/19 24 06/05/2023 HEPAT IC/LI MOHAN PANEL total protein 7.7 g/dL 6.3-8. 2 Not Available [facility] (Lab) [address] [place], [address], 06/05/2023 23:02:24 06/05/19 24 06/05/2023 HEPAT IC/LI MOHAN PANEL albumin 5.0 g/dL 3.4-5. 0 Not Available [facility] (Lab) [address] [place], [address], 06/05/2023 23:02:24 06/05/19 24 06/05/2023 HEPAT IC/LI MOHAN PANEL globulin 2.7 g/dL 2.6-4. 2 Not Available [facility] (Lab) [address] [place], [address], 06/05/2023 23:02:24 06/05/19 24 06/05/2023 HEPAT IC/LI MOHAN PANEL A/G ratio 1.9 ratio 1.0-2. 0 Not Available [facility] (Lab) [address] [place], [address], 06/05/2023 23:02:24 06/05/19 24 06/05/2023 LIPID PANEL cholesterol 120 mg/dL 140-19 9 low NIH KATIUSKA NSUS RECOM MENDA TION FOR MARCO STERO L: ADULT CHILD LOW RISK: <200 <170 BORDE RLINE : <200- 239 ----- HIGH RISK: >240 >200 Not Available [facility] (Lab) [address] [place], [address], 06/05/2023 22:11:22 06/05/19 24 06/05/2023 LIPID PANEL triglyceride s 134 mg/dL 0-150 NIH KATIUSKA NSUS REPOR T RECOM MENDA TION FOR TRIGL YCERI JOSÉ ANTONIO: ADULT CHILD LOW RISK: <150 ----- BODER LINE: 150-1 99 ----- HIGH RISK: >200 ----- Not Available [facility] (Lab) [address] [place], [address], 06/05/2023 22:11:22 06/05/19 24 06/05/2023 LIPID PANEL HDL cholesterol 61 mg/dL 40- Not Available [facility] (Lab) [address] [place], [address], 06/05/2023 22:11:22 06/05/19 24 06/05/2023 LIPID PANEL LDL cholesterol, calculated 32 mg/dL 0-130 NIH KATIUSKA NSUS REPOR T RECOM MENDA TIONS FOR LDL: ADULT CHILD LOW RISK <130 <110 (OPTI MAL LDL) <100 ----- BORDE RLINE : 130-1 59 ----- HIGH RISK: >160 >130 A TRIGL YCERI DE RESUL T >400 INVAL IDATE S THE CALCU LATIO N FOR LDL FRACT IONAT ION - THE LDL RESUL T WILL NOT BE REPOR SOPHIE. Not Available [facility] (Lab) [address] [place], [address], 06/05/2023 22:11:22 10/09/19 24 10/09/2023 BASIC METAB OLIC PANEL sodium 139 mmol/ L 137-14 5 Not Available [facility] (Lab) [address] [place], [address], 10/09/2023 20:23:08 10/09/19 24 10/09/2023 BASIC METAB OLIC PANEL potassium 5.0 mmol/ L 3.5-5. 1 Not Available [facility] (Lab) [address] [place], [address], 10/09/2023 20:23:08 10/09/19 24 10/09/2023 BASIC METAB OLIC PANEL chloride 106 mmol/ L 98-107 Not Available [facility] (Lab) [address] [place], [address], 10/09/2023 20:23:08 10/09/19 24 10/09/2023 BASIC METAB OLIC PANEL carbon dioxide 27 mmol/ L 22-30 Not Available [facility] (Lab) [address] [place], [address], 10/09/2023 20:23:08 10/09/19 24 10/09/2023 BASIC METAB OLIC PANEL anion gap 11.0 mmol/ L 14-22 low Not Available [facility] (Lab) [address] [place], [address], 10/09/2023 20:23:08 10/09/19 24 10/09/2023 BASIC METAB OLIC PANEL glucose 100 mg/dL 70-99 high Not Available [facility] (Lab) [address] [place], [address], 10/09/2023 20:23:08 10/09/19 24 10/09/2023 BASIC METAB OLIC PANEL BUN 26 mg/dL 8-19 high Not Available [facility] (Lab) [address] [place], [address], 10/09/2023 20:23:08 10/09/19 24 10/09/2023 BASIC METAB OLIC PANEL creatinine 1.34 mg/dL 0.66-1 .25 high Not Available [facility] (Lab) [address] [place], [address], 10/09/2023 20:23:08 10/09/19 24 10/09/2023 BASIC METAB OLIC PANEL GFR 57 Refer ence Range : [place] ge GFR Healt hy Adult : >60 mL/mi n/1.7 3 m2 Chron ic Kidne y Disea se: 15-60 mL/mi n/1.7 3 m2 Kidne y Failu re: <15/m L/min /1.73 m2 www.n iddk. nih.g ov The MDRD study equat ion has not been valid ated in child fabrice <18 years of age; pregn ant women ; the elder ly >85 years of age; or in some racia l or ethni c subgr oups, such as [facility] nics. Outsi de the valid ated vi eters , estim ated GFR is less accur ate, requi ring clini trevin judgm ent on a case- by-ca se basis . Clini trevin inter preta tion for other races and ages must be made by the clini sonia. The MDRD study equat ion has not been valid ated for the evalu ation of serum creat inine relat ed to nutri arielle l statu s or medic ation usage . For perso ns <18 years of age, a pedia tric GFR calcu lator is avail able on the [facility] websi te: https ://rasheed w.lucia villanuevay.o rg/pr ofess ional s/kdo qi/gf r_cal culat or Not Available [facility] (Lab) [address] [place], [address], 10/09/2023 20:23:08 10/09/19 24 10/09/2023 BASIC METAB OLIC PANEL calcium 9.7 mg/dL 8.4-10 .2 Not Available [facility] (Lab) [address] [place], [address], 10/09/2023 20:23:08 10/06/19 25 10/05/2024 COMP. METAB OLIC PANEL (14) interpretati on: COMMEN T GFR estim ate at the follo wing level for >or=3 month s is class ified as follo ws: GFR WITH KIDNE Y DAMAG E WITHO UT KIDNE Y DAMAG E >or=9 0 Stage 1 Sheila l 60-89 Stage 2 Decr eased GFR 30-59 Stage 3 Stage 3 15-29 Stage 4 Stage 4 <15 (or dialy sis) Stage 5 Stage 5 Estim ated GFR will over estim ate true GFR if serum creat inine is risin g as in acute renal failu re and will under estim ate true GFR if serum creat inine is decli jadiel as in resol ving acute renal failu re. Addit ional infor nora oquendo may be found at www.k doqi. org. Not Available [facility] ([facility]) [address] [place], [address], 10/06/2024 08:25:24 10/06/19 25 10/06/2024 COMP. METAB OLIC PANEL (14) glucose 121 mg/dL 70-99 above high normal Not Available [facility] ([facility]) [address] [place], [address], 10/06/2024 08:25:24 10/06/19 25 10/06/2024 COMP. METAB OLIC PANEL (14) BUN 19 mg/dL 6-24 normal Not Available [facility] ([facility]) [address] [place], [address], 10/06/2024 08:25:24 10/06/19 25 10/06/2024 COMP. METAB OLIC PANEL (14) creatinine 1.30 mg/dL 0.76-1 .27 above high normal Not Available [facility] ([facility]) [address] [facility] [place], [address], 10/06/2024 08:25:24 10/06/19 25 10/06/2024 COMP. METAB OLIC PANEL (14) eGFR 67 mL/mi n/1.7 3 >59 normal Not Available [facility] ([facility]) [address] [facility] [place], [address], 10/06/2024 08:25:24 10/06/19 25 10/06/2024 COMP. METAB OLIC PANEL (14) BUN/creatini ne ratio 15 9-20 normal Not Available [facility] ([facility]) [address] [facility], [place], [address], 10/06/2024 08:25:24 10/06/19 25 10/06/2024 COMP. METAB OLIC PANEL (14) sodium 144 mmol/ L 134-14 4 normal Not Available [facility] ([facility]) [address] [facility] [place], [address], 10/06/2024 08:25:24 10/06/19 25 10/06/2024 COMP. METAB OLIC PANEL (14) potassium 4.2 mmol/ L 3.5-5. 2 normal Not Available [facility] ([facility]) [address] [facility] [place], [address], 10/06/2024 08:25:24 10/06/19 25 10/06/2024 COMP. METAB OLIC PANEL (14) chloride 105 mmol/ L 96-106 normal Not Available [facility] ([facility]) [address] [facility] [place], [address], 10/06/2024 08:25:24 10/06/19 25 10/06/2024 COMP. METAB OLIC PANEL (14) carbon dioxide, total 22 mmol/ L 20-29 normal Not Available [facility] ([facility]) [address] [facility] [place], [address], 10/06/2024 08:25:24 10/06/19 25 10/06/2024 COMP. METAB OLIC PANEL (14) calcium 8.9 mg/dL 8.7-10 .2 normal Not Available [facility] ([facility]) [address] [place], [address], 10/06/2024 08:25:24 10/06/19 25 10/06/2024 COMP. METAB OLIC PANEL (14) protein, total 7.0 g/dL 6.0-8. 5 normal Not Available [facility] ([facility]) [address] [facility] [place], [address], 10/06/2024 08:25:24 10/06/19 25 10/06/2024 COMP. METAB OLIC PANEL (14) albumin 4.6 g/dL 4.1-5. 1 normal Not Available [facility] ([facility]) [address] [facility] [place], [address], 10/06/2024 08:25:24 10/06/19 25 10/06/2024 COMP. METAB OLIC PANEL (14) globulin, total 2.4 g/dL 1.5-4. 5 Not Available [facility] ([facility]) [address] [facility] [place], [address], 10/06/2024 08:25:24 10/06/19 25 10/06/2024 COMP. METAB OLIC PANEL (14) bilirubin, total 0.4 mg/dL 0.0-1. 2 normal Not Available [facility] ([facility]) [address] [facility] [place], [address], 10/06/2024 08:25:24 10/06/19 25 10/06/2024 COMP. METAB OLIC PANEL (14) alkaline phosphatase 66 IU/L 44-121 normal Not Available [facility] [address] [place], [address], 10/06/2024 08:25:24 10/06/19 25 10/06/2024 COMP. METAB OLIC PANEL (14) AST (SGOT) 15 IU/L 0-40 normal Not Available [facility] ([facility]) [address] [place], [address], 10/06/2024 08:25:24 10/06/19 25 10/06/2024 COMP. METAB OLIC PANEL (14) ALT (SGPT) 26 IU/L 0-44 normal Not Available [facility] ([facility]) [address] [place], [address], 10/06/2024 08:25:24 10/06/19 25 10/06/2024 LIPID PANEL cholesterol, total 129 mg/dL 100-19 9 normal Not Available [facility] ([facility]) [address] [place], [address], 10/06/2024 08:25:26 10/06/19 25 10/06/2024 LIPID PANEL triglyceride s 112 mg/dL 0-149 normal Not Available [facility] ([facility]) [address] [place], [address], 10/06/2024 08:25:26 10/06/19 25 10/06/2024 LIPID PANEL HDL cholesterol 61 mg/dL >39 normal Not Available [facility]) [address] [place], [address], 10/06/2024 08:25:26 10/06/19 25 10/06/2024 LIPID PANEL VLDL cholesterol trevin 20 mg/dL 5-40 Not Available [facility] ([facility]) [address] [place], [address], 10/06/2024 08:25:26 10/06/19 25 10/06/2024 LIPID PANEL LDL chol calc ([facility]) 48 mg/dL 0-99 Not Available [facility]) [address] [facility], [place], [address], 10/06/2024 08:25:26 10/06/19 25 10/06/2024 LIPID PANEL LDL calc comment: ADMINISTRATIVE ASST Not Available [facility] ([facility]) [address] [facility], [place], [address], 10/06/2024 08:25:26 10/06/19 25 10/06/2024 PSA TOTAL +% FREE prostate specific Ag 0.5 NG/mL 0.0-4. 0 normal Master ECLIA metho dolog y. Accor ding to the Ameri can [employer]rolo g[employer] iatio n, Serum PSA shoul d decre ase and remai n at undet ectab le level s after radic al prost atect uriel. The AUA defin es bioch emica l recur rence as an initi al PSA value 0.2 ng/mL or great er follo wed by a subse quent confi rmato ry PSA value 0.2 ng/mL or great er. Value s obtai flor with diffe rent assay metho ds or kits canno t be used inter ojeda eably . Resul ts canno t be inter prete d as absol [place] evide nce of the prese nce or absen ce of chip nichols se. Not Available [facility] ([facility]) [address] [facility], [place], [address], 10/06/2024 08:25:27 10/06/19 25 10/06/2024 PSA TOTAL +% FREE PSA, free 0.36 NG/mL n/a Master ECLIA metho dolog y. Not Available [facility] ([facility]) [address] [facility], [place], [address], 10/06/2024 08:25:27 10/06/19 25 10/06/2024 PSA TOTAL +% FREE % free PSA 72.0 % The table below lists the proba bilit y of prost ate cance r for men with non-s uspic ious SONDRA resul ts and total PSA betwe en 4 and 10 ng/mL , by patie nt age (Shayla tony et al, MATEO 1998, 279:1 542). % Free PSA 50-64 yr 65-75 yr 0.00- 10.00 % 56% 55% 10.01 -15.0 0% 24% 35% 15.01 -20.0 0% 17% 23% 20.01 -25.0 0% 10% 20% >25.0 0% 5% 9% Pleas e note: Mayo ayala et al did not make speci fic recom menda tions regar ding the use of perce nt free PSA for any other popul ation of men. Not Available [facility] ([facility]) [address] [facility], [place], [address], 10/06/2024 08:25:27 Result Notes None recorded. Problems Name Problem SNOMED Code Status Onset Date Resolution Date Notes Provider Name and Address Organization Details Recorded Time Left ventricular hypertrophy 00626582 Active 2021 Not Available [facility] 3 01:24:59 Essential hypertension 85788194 Active 2021 Not Available [facility] 3 01:24:59 Hypertriglyce ridemia 085868835 Active 2021 Not Available [facility] 3 01:24:59 Hyperlipidemi a 50055319 Active 2021 Not Available [facility] 3 01:24:59 Overweight 132832769 Active 2022 TREV Noland null, [place] [employer] [facility] 3 09:41:03 Serum creatinine above reference range 378716848 Active 2022 MANOJ Aiken, [employer] [facility] 3 15:29:31 Obesity 943508576 Active 2022 Morgan Badillo MD [address] [place] [address], [address] [place], [address] , [place] [facility] 3 16:21:50 Erectile dysfunction 109708895 Active 2022 Morgan Badillo MD [address], [address], [place], [address] , [place] [facility] 3 16:25:26 Abnormal liver function 00054365 Active 2022 Pauly oquendo RMA null, [place] [facility] 3 15:32:47 Abnormal renal function 34202024 Active 2022 Pauly oquendo RMA null, [place] [facility] 3 15:33:56 Liver function tests outside reference range 656126292 Active 2023 Morgan Badillo MD [address], [address], [place], [address] , [place] [facility] 4 09:22:29 Herpes zoster 6053581 Active 2023 Morgan Badillo MD [address], [address], [place], [address] , [place] [facility] 4 11:20:30 Kidney disease 21498303 Active 2023 Morgan Badillo MD [address], [place], [address] , [place] [facility] 4 10:07:40 Sinusitis 42393183 Active 2023 Ana Luisa White MA null, [place] [facility] 4 14:13:15 Hypertensive heart AND renal disease 96763740 Active 2024 Kinga Apple null, [place] [facility] 5 16:29:14 Hypercholeste rolemia 77703149 Active 2024 Kinga Apple null, [place] [facility] 5 12:23:43 Hypertensive disorder 61127364 Active 2024 Kinga prado, [facility] [employer] [facility] 12:25:10 Hyperglycemia 70493561 Active 2024 MANOJ Canela, [facility] [employer] [facility] 14:16:21 Problem Notes None recorded. Medical Equipment None Reported. Medications Name Sig Start Date Stop Date Status Note LastModified by Organization Details LastModified Time losartan 50 mg tablet Take 1 tablet every day by oral route. 05/25 completed Not Available Not Available Not Available carvedilo l 6.25 mg tablet TAKE 1 TABLET BY MOUTH TWICE A DAY 2024 active MONA: 09/27/24 - NOV: 01/25/25 Not Available Not Available Not Available carvedilo l 12.5 mg tablet one tab bid 10/08 completed Not Available Not Available Not Available valacyclo vir 1 gram tablet Take 1 tablet every 8 hours by oral route. 05/25 completed Not Available Not Available Not Available Medrol (Rush) 4 mg tablets in a dose pack take as directed on the prepacka ged rx 05/25 completed per 01/29/24 patient case / ds Not Available Not Available Not Available Zithromax Z-Rush 250 mg tablet TAKE 2 TABLETS (500 MG) BY ORAL ROUTE ONCE DAILY FOR 1 DAY THEN 1 TABLET (250 MG) BY ORAL ROUTE ONCE DAILY FOR 4 DAYS 05/25 completed per 01/29/24 patient case / ds Not Available Not Available Not Available lisinopri l 10 mg tablet 09/06 completed Not Available Not Available Not Available lisinopri l 20 mg-hydroc hlorothia zide 25 mg tablet TAKE 1 TABLET BY MOUTH EVERY DAY 06/04 completed Was stopped 01/28/23 Not Available Not Available Not Available lisinopri l 5 mg tablet TAKE 1 TABLET BY MOUTH EVERY MORNING 09/06 completed Not Available Not Available Not Available losartan 100 mg tablet TAKE 1 TABLET BY MOUTH EVERY DAY 2024 active MONA: 09/27/24 - NOV: 01/25/25 Not Available Not Available Not Available fluticaso ne propionat e 50 mcg/actua tion nasal spray,tasneem pension one spray each nostril once daily 05/25 completed per 01/29/24 patient case / ds Not Available Not Available Not Available rosuvasta tin 20 mg tablet TAKE 1 TABLET BY MOUTH EVERY DAY 2024 active MONA: 09/27/24 - NOV: 01/25/25 Not Available Not Available Not Available Vitals Date Recorded Body height Body mass index (BMI) Body weight Body temperature Heart rate Oxygen saturation Oxygen saturation in Arterial blood by Pulse oximetry Systolic And Diastolic Provider Name and Address Organization Details Last Updated DateTime 5 190.5 cm 30.7 kg/m2 041000. 72 g 97.8 [degF] 89 /min 97 % 97 % 130/90 mm[Hg] Kinga clements [facility] [employer] [facility] 5 16:39:36 Date Recorded Body height Body mass index (BMI) Body weight Body temperature Heart rate Oxygen saturation Oxygen saturation in Arterial blood by Pulse oximetry Systolic And Diastolic Provider Name and Address Organization Details Last Updated DateTime 4 190.5 cm 29.5 kg/m2 394862. 8 g 97 [degF] 81 /min 98 % 98 % 118/80 mm[Hg] Pauly patel [facility] [employer] [facility] 4 09:12:15 Date Recorded Body height Body mass index (BMI) Body weight Heart rate Oxygen saturation Oxygen saturation in Arterial blood by Pulse oximetry Systolic And Diastolic Provider Name and Address Organization Details Last Updated DateTime 4 190.5 cm 29.7 kg/m2 886133. 98 g 68 /min 98 % 98 % 120/80 mm[Hg] Debbie Ruelas [facility] [employer] [facility] 4 11:10:59 Date Recorded Body height Body mass index (BMI) Body weight Heart rate Oxygen saturation Oxygen saturation in Arterial blood by Pulse oximetry Body temperature Systolic And Diastolic Provider Name and Address Organization Details Last Updated DateTime 5 190.5 cm 29.1 kg/m2 607266. 02 g 88 /min 98 % 98 % 97.8 [degF] 138/78 mm[Hg] Kinga clements [facility] 5 16:14:54 Date Recorded Body height Body mass index (BMI) Body weight Body temperature Heart rate Oxygen saturation Oxygen saturation in Arterial blood by Pulse oximetry Systolic And Diastolic Provider Name and Address Organization Details Last Updated DateTime 4 190.5 cm 30.4 kg/m2 925728. 95 g 97.3 [degF] 66 /min 96 % 96 % 144/100 mm[Hg] TREV Priest [facility] 4 09:42:56 Social History Question Answer Notes LastModified by Organizat ion Details LastModified Time Tobacco Smoking Status Current Every Day Smoker Cigars Not Available [facility] 04/18/2022 01:23:51 Do You Have An Advance Directive? No [id number] Information not available 04/18/2022 Do You Wear A Helmet When Biking? No MIGRATION.601323 5983 Information not available 04/18/2022 What Is Your Level Of Caffeine Consumption? None MIGRATION.847733 6771 Information not available 04/18/2022 In The 14 Days Before Symptom Onset, Have You Had Close Contact With A Laboratory-confirm ed COVID-19 While That Case Was Ill? No [id number].[id number] 3722 Information not available 04/18/2022 In The 14 Days Before Symptom Onset, Have You Had Close Contact With A Person Who Is Under Investigation For COVID-19 While That Person Was Ill? No MIGRATION.[id number] 6880 Information not available 04/18/2022 What Type Of Diet Are You Following? REGULAR MIGRATION.909059 4931 Information not available 04/18/2022 What Is The Highest Grade Or Level Of School You Have Completed Or The Highest Degree You Have Received? [id number] MIGRATION.828873 8022 Information not available 04/18/2022 Have There Been Any Changes To Your Family Or Social Situation? No MIGRATION.787805 7837 Information not available 04/18/2022 Are There Any Guns Present In Your Home? Yes MIGRATION.264505 1728 Information not available 04/18/2022 Do You Use Insect Repellent Routinely? Yes MIGRATION.300669 3405 Information not available 04/18/2022 Have You Ever Been Counseled For Unhealthy Alcohol Use? No MIGRATION.497650 4422 Information not available 04/18/2022 What Is Your Relationship Status? MIGRATION.826391 3847 Information not available 04/18/2022 Do You Use Your Seat Belt Or Car Seat Routinely? Yes MIGRATION.378054 4614 Information not available 04/18/2022 Do You Have Smoke And Carbon Monoxide Detectors In Your Home? Yes MIGRATION.902551 1398 Information not available 04/18/2022 Are You Passively Exposed To Smoke? No MIGRATION.270859 2314 Information not available 04/18/2022 Are There Any Smokers In Your House? No MIGRATION.834611 5243 Information not available 04/18/2022 How Much Tobacco Do You Smoke? No MIGRATION.802658 7940 Information not available 04/18/2022 Do You Use Sunscreen Routinely? Yes MIGRATION.266943 2251 Information not available 04/18/2022 Has Tobacco Cessation Counseling Been Provided? No MIGRATION.049452 3561 Information not available 04/18/2022 Have You Recently Traveled Abroad? No MIGRATION.652022 1516 Information not available 04/18/2022 Do You Have Any Dietary Restrictions? No MIGRATION.202900 1763 Information not available 04/18/2022 Sex: Unknown Functional Status Question Answer Note LastModified by [employer] Details LastModified Time Do you use any illicit or recreational drugs? No MIGRATION.238994 1111 Information not available 04/18/2022 Do you or have you ever used any other forms of tobacco or nicotine? No MIGRATION.882930 7206 Information not available 04/18/2022 What is your level of alcohol consumption? Occasional MIGRATION.626275 2882 Information not available 04/18/2022 What is your occupation? [employer] MIGRATION.310295 0630 Information not available 04/18/2022 What is your exercise level? Occasional MIGRATION.806406 0634 Information not available 04/18/2022 Mental Status Question Answer Note LastModified by [employer] Details LastModified Time Do you feel stressed (tense, restless, nervous, or anxious, or unable to sleep at night)? [id number] MIGRATION.[id number] 6 Information not available 04/18/2022 Family History Relationship Description Onset Age of this Age Resolved Age Notes LastModified by Organization Details LastModified Time Father Hypertensive disorder [id number].[id number] Not available 04/18/2022 01:24:10 Mother Hypertensive disorder MIGRATION.[id number] Not available 04/18/2022 01:24:10 Mother Diabetes mellitus MIGRATION.[id number] Not available 04/18/2022 01:24:10 Medical History No medical history recorded. Immunizations Vaccine Type Date Status Note Provider Nam e and Address Organization Details Recorded Time COVID-19, mRNA, LNP-S, PF, 100 mcg/0.5mL dose or 50 mcg/0.25mL dose 06/12/2020 completed Not Available [facility] 16:08:25 COVID-19, mRNA, LNP-S, PF, 100 mcg/0.5mL dose or 50 mcg/0.25mL dose 07/10/2020 completed Not Available [facility] 16:08:25 Past Encounters Encounter ID Performer Location Encounter Start Date Encounter Closed Date Diagnosis/Indication Diagnosis SNOMED-CT Code Diagnosis ICD10 Code Diagnosis IMO Codes Diagnosis Note [id number] Morgan Badillo MD S[facility] Internal Med [address] [address] 09/06/2021 00:00:00 09/06/2021 15:48:22 [id number] Morgan Badillo MD S_[facility] Internal Med [address] [address] 10/08/2021 00:00:00 10/08/2021 16:07:08 [id number] Morgan Badillo MD Nathaniel_[facility] Internal Med [address] [address] 02/05/2022 00:00:00 02/05/2022 16:38:32 [id number] Morgan Badillo MD S[facility] Internal Med [address] [address] 06/06/2022 16:22:10 06/06/2022 16:55:55 Essential hypertension 87692931 I10 under control Hyperlipidemia 75697553 E78.5 watch diet Adult heal th examination 604221730 Z00.00 Colonoscop y-PSA-FLU- NEVERCOVID - Has had the first 2 Overweight 710494588 E66 .3 advised to lose [id number] Morgan Badillo MD [facility] Internal [facility] [address] [place] [address] 09/27/2022 09:36:12 09/27/2022 10:26:58 Essential hypertension 01924886 I10 under control Hyperlipidemia 33304127 E78.5 advised to watch diet Adult [facility] examination 598127793 Z00.00 Colonoscop y-PSA-FLU- NEVERCOVID - Has had the first 2 Overweight 098016763 E66 .3 advised to lose [id number] Morgan Badillo MD [facility] Internal [facility] [address] [place] [address] 01/28/2023 16:06:23 01/28/2023 16:29:50 Essential hypertension 67352554 I10 change the meds Hyperlipidemia 45296911 E78.5 advised to watch diet Adult [facility] examination 127595359 Z00.00 Colonoscop y-PSA-FLU- NEVERCOVID - Has had the first 2 Obesity 253602908 E66.9 advised t watch diet Erectile dysfunction 860 105223 F52.21 stop Lisinopril Serum crea tinine above reference range 453054796 R79.89 drink more water, labs [id number] Morgan Badillo MD [facility] Internal [address] [place] [address] 06/05/2023 09:08:15 06/05/2023 09:36:04 Essential hypertension 01009059 I10 under control Hyperlipidemia 99917984 E78.5 advised to watch diet Adult [facility] examination 564564888 Z00.00 Colonoscop y-PSA-FLU- NEVERCOVID - Has had the first 2 Obesity 966430003 E66.9 advised t watch diet and lose more Erectile dysfunction 860 954421 F52.21 improved Serum crea tinine above reference range 906475012 R79.89 drink more water, check labs Liver func tion tests outside reference range 045281809 R94.5 mild, watching diet [id number] Morgan Badillo MD [facility] Internal [facility] [address] [place] [address] 07/29/2023 11:06:51 07/29/2023 11:22:40 Herpes zoster 6137731 B02.9 [facility] [id number] Morgan Badillo MD [facility] Internal [facility] [address] [facility] 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 [address] 05/25/2024 16:24:25 05/25/2024 17:04:41 Essential hypertension 08025762 I10 better Hyperlipidemia 58128067 E78.5 advised to watch diet Adult [facility] examination 528588616 Z00.00 Colonoscop y-PSA-FLU- NEVERCOVID - Has had the first 2 Obesity 531755521 E66.9 advised t watch diet Erectile dysfunction 860 501887 F52.21 improved Liver func tion tests outside reference range 763317909 R94.5 IMPROVED Kidney disease 36348136 N08 getting better, keep drinking more water Screening for malignant neoplasm of colon 127654180 Z12.11 [id number] Morgan Badillo MD [facility] Internal Med [address] [facility] [place] [address] 09/27/2024 16:06:34 09/27/2024 16:26:26 Essential hypertension 77435451 I10 under control Hyperlipidemia 08662205 E78.5 advised to watch diet Adult [facility] examination 986731514 Z00.00 Colonoscop y-PSA- orderedFLU - NEVERCOVID - Has had the first 2 Obesity 554243098 E66.9 advised to watch diet and lose more Erectile dysfunction 860 667306 F52.21 improved Liver func tion tests outside reference range 636975265 R94.5 IMPROVED Kidney disease 64982321 N08 getting better, keep drinking more water, check labs Screening for malignant neoplasm of colon 826852373 Z12.11 SCHEDULED IN Screening for malignant neoplasm of prostate 969550281 Z12.5 [id number] Health Concerns Section Related Observation LastModified by Organization Detai ls LastModified Time None Recorded Concern Status LastModified by Organization Details LastModified Time None Recorded Advance Directives Directive N: Payers Insurance Date Sequence Insurance Name Policy Number Policy Zavala Covered Member ID Zavala Member ID Guarantor Name 10/05/2024 1 [facility] [id number] Rob Bernal [id number] Rob Bernal Notes Date Note Type Note Provider Name and Address Organization Details Recorded Time 06/05/2023 text/html Pt is here for 4 month f/u. PT IS NOT FASTING Hypertension- controlled with medsMeds- Carvedilol 6.25mg BID, Losartan 50 mg qd Hyperlipidemia/ high Trig- under controlMeds- Rosuvastatin 20mg daily Obesity- Lost 6 lbs High creatinine, drinking more water, GFR was 54 (01/2023) ED- improved since Lisinopril was stopped 01/28/23 Morgan Badillo MD [address], [place], [address], [employer] 06/05/2023 09:25:05 07/29/2023 text/html ROS as noted in the HPI He is here today for a rash on on his right side that goes around to his back (not crossing the center) noticed a few rash clusters Last . Has some pain and a little itching.no fever Morgan Badillo MD [address], [place], [address], [employer] [facility] [employer] 07/29/2023 11:23:04 10/09/2023 text/html Pt is here for 4 month f/u. PT IS FASTING Hypertension- controlled with medsMeds- Carvedilol 6.25mg BID, Losartan 50 mg qd Hyperlipidemia/ high Trig- under control, labs 4/24Meds- Rosuvastatin 20mg daily Obesity- Gained 5 lbs High creatinine, drinking more water, GFR was 57(06/05/23) from 54 ED- improved since Lisinopril was stopped 01/28/23 Morgan Badillo MD [address], [place], [address], [employer] 10/09/2023 10:09:56 05/25/2024 text/html Pt is here for 4 month f/u. PT IS NOT FASTING [facility] Hypertension- controlled with medsMeds- Carvedilol 6.25mg BID, Losartan 100mg qd Hyperlipidemia/ high Trig- under control, labs 06/10Meds- Rosuvastatin 20mg daily Obesity- Gained 3lbs High creatinine, drinking more water, GFR was 57(06/05/23) from 54 ED- improved since Lisinopril was stopped 01/28/23 Morgan Badillo MD [address], [place], [address], [employer] 05/25/2024 16:56:47 09/27/2024 text/html Pt is here for 4 month f/u. PT IS NOT FASTING [facility] Hypertension- controlled with medsMeds- Carvedilol 6.25mg BID, Losartan 100mg qd Hyperlipidemia/ high Trig- under control, labs 06/10, dueMeds- Rosuvastatin 20mg daily Obesity- Gained 13lbs, watching diet High creatinine, drinking more water, GFR was 57(06/05/23) from 54 ED- improved since Lisinopril was stopped 01/28/23 Screening colonoscopy- scheduled for Dec Morgan Badillo MD [address], [address], [place], [address], [employer] 09/27/2024 16:25:37
[2024-12-27 06:44] VITALS: BP 135/99; PULSE 70; RESP 20; TEMP 36.8; O2SAT 98; BMI 29.6
[2024-12-27] MEDS: LACTATED RINGERS 1,000 ML 150 ML IV CONT (06:54)
--- NOTE | 2024-12-27 07:04 | P.PNAN_ITS ---
Anes - Initial Pre Proc Eval Procedure: Operation Date: 12/27/24 08:00 Proposed Procedures p Screening Colonoscopy - Jose Diez MD Date/Time: 12/27/24 07:04 Surgeon: Jose Diez MD Pre Op Diagnosis: Encounter for screening for malignant neoplasm of Patient Data Age: 49 Gender: M Height: 1.91 m Weight: 107.5 kg Last Vital Signs Temp 36.8 C 12/27/24 06:44 Pulse 70 12/27/24 06:44 Resp 20 12/27/24 06:44 BP 135/99 H 12/27/24 06:44 Pulse Ox 98 12/27/24 06:44 O2 Del Method Room Air 12/27/24 06:44 Allergies Allergy/AdvReac Type Severity Reaction Status Date / Time No Known Allergies Allergy Verified 12/27/24 06:43 Home Medications ?Medication ?Instructions ?Recorded ?Confirmed ?Type carvedilol 6.25 mg tablet (Coreg) 6.25 mg PO Q12HR 30 days #60 tabs 09/01/21 1 02/27/24 Rx losartan 100 mg tablet 100 mg PO DAILY 12/13/2412/11 History rosuvastatin 20 mg tablet 20 mg PO DAILY 12/13/2412/18 History Patient hx anesthesia problems: none Family hx anesthesia problems: none Results Review: All pre-operative results and documents have been reviewed as part of the pre- operative evaluation. [facility] Past Medical History Medical History (Updated 12/27/24 @ 07:05 by Sheng Russell MD) Hypertension Snoring Obesity Surgical History Surgical History No pertinent past surgical history Family History Family History Father Heart disease Social History Social History Smoking status: Current some day smoker Tobacco type: cigars Alcohol intake: current Drinks per week: 4 Alcohol use details: occ Substance use: former Substance use type: does not use Other substance usage details: every few weeks Living arrangements: with family Spiritual care concerns: No Anes - Eval Final PreProcedure Day of Procedure 12/27/24 07:04 Patient weight: overweight Heart: regular rate and rhythm Lungs: clear to auscultation Airway: Mallampati scale class II Neurological: alert and oriented Last oral intake: >/= 8 hours ASA classification: II Emergent: no Anesthetic plan: proceed Anesthesia type and monitoring: general GIVS and standard monitoring Results Review: All pre-operative results and documents have been reviewed as part of the pre- operative evaluation. Informed Consent: The patient's anesthetic plan and its attendant risks and benefits were discussed with the patient/family/POA. Questions were solicited and answers provided to the satisfaction of the patient/family/POA.
--- NOTE | 2024-12-27 07:51 | PM.HPGS ---
History of Present Illness History of Present Illness Consent: Risks, benefits, and alternatives have been discussed and questions answered. Patient agrees to proceed with procedure. Chief complaint: Encounter for screening for malignant neoplasm of Narrative: Rob Bernal is a 49 year old male here for first screening colonoscopy Review of Systems Review of Systems: All systems reviewed & are unremarkable except as noted in HPI and below PMFSH Past Medical History Medical History (Updated 12/27/24 @ 07:52 by Jose Diez MD) Colon cancer screening Hypertension Snoring Obesity Surgical History Surgical History No pertinent past surgical history Family History Family History Father Heart disease Social History Social History Smoking status: Current some day smoker Tobacco type: cigars Alcohol intake: current Drinks per week: 4 Alcohol use details: occ Substance use: former Substance use type: does not use Other substance usage details: every few weeks Living arrangements: with family Spiritual care concerns: No Meds Home Medications and Allergies Home Medications ?Medication ?Instructions ?Recorded ?Confirmed ?Type carvedilol 6.25 mg tablet (Coreg) 6.25 mg PO Q12HR 30 days #60 tabs 09/01/21 12/27/24 Rx losartan 100 mg tablet 100 mg PO DAILY 12/13/24 12/27/24 History rosuvastatin 20 mg tablet 20 mg PO DAILY 12/13/24 12/27/24 History Allergies Allergy/AdvReac Type Severity Reaction Status Date / Time No Known Allergies Allergy Verified 12/27/24 06:43 Vital Signs Vital Signs - 24 hr 12/27/24 06:44 Temperature 98.3 F Pulse Rate 70 Respiratory Rate 20 Blood Pressure 135/99 H Pulse Oximetry 98 Oxygen Delivery Room Air Exam Const: General: comfortable and no acute distress HENMT: Face/Nose/Sinus: Normal nares present Eyes: General: appearance normal, both eyes and all related structures Neck: Neck: no JVD Resp: Auscultation: clear to auscultation bilaterally Cardio: Rate: regular rate Rhythm: regular rhythm GI: Inspection: non-distended GI Palp: Yes Soft to palpation Skin: General skin exam: normal color Neuro: General: gait normal Speech: normal speech Extrem: General: normal to inspection Psych: Mental Status: mental status grossly normal Assessment and Plan Assessment and plan (1) Colon cancer screening: Code(s): Z12.11 - Encounter for screening for malignant neoplasm of colon Status: Acute Assessment and Plan: colonoscopy
--- NOTE | 2024-12-27 08:04 | S_PTH ---
PATIENT: Rob Bernal LOC: [facility]#:[id number] AGE/SX: 49/M ROOM: RE12/27/[address]: Jose Diez MD : 1975 BED: DIS: 12/27/2024 SPEC #: [id number] RECD: 12/27/24 09:45 STATUS: ROSALIND REQ #: [id number] LIZ: 12/27/24 08:[address]: Jose Diez DEPT: [facility] Surgical RECD BY: Lucía Ferrara ENTERED: 12/27/24 09:46 SP TYPE: Surgical OTHR DR: Morgan Badillo, Tissues: A - Colon Polypectomy Procedures: Hematoxylin and Eosin Stain Gross and Microscopic Level 4
[2024-12-27 08:05] VITALS: BP 103/64; PULSE 67; RESP 15; O2SAT 94
[2024-12-27 08:15] VITALS: BP 104/63; PULSE 63; RESP 13; O2SAT 94
[2024-12-27 08:25] VITALS: BP 111/78; PULSE 62; RESP 15; O2SAT 97
== END 2024-12-27 08:35 | disposition home or self-care (01) ==
PROVIDERS: PCP Internal Medicine; Referring Provider Internal Medicine; Visit Provider Internal Medicine Gastroenterology
PROC: 0DJD8ZZ Inspection of Lower Intestinal Tract, Via Natural or Artificial Opening Endoscopic (ICD-10-PCS; CPT 45378; principal; 2024-12-27 08:00)
DX: Z12.11 Encounter for screening for malignant neoplasm of colon (principal); D12.4 Benign neoplasm of descending colon; K64.8 Other hemorrhoids; I10 Essential (primary) hypertension; R06.83 Snoring; F17.220 Nicotine dependence, chewing tobacco, uncomplicated; Z82.49 Family history of ischemic heart disease and other diseases of the circulatory system
CPT/HCPCS: 45385; 88305; J2704; J7120